=== PATIENT | female | born 1940 | race Caucasian/White ===

== ENCOUNTER 2020-12-15 07:10 | Inpatient (IN) ==
[2020-12-15] MEDS ORDERED: IOPAMIDOL 100 ML BOTTLE IV ONE (07:11)
[2020-12-15] MEDS ORDERED: IPRATROPIUM/ALBUTEROL 3 ML AMPUL.NEB NEB ONE (07:18)
[2020-12-15] MEDS ORDERED: methylPREDNISolone SOD SUCC 125 MG/2 ML VIAL IV ONE (07:18)
[2020-12-15] MEDS ORDERED: ONDANSETRON 4 MG/2 ML VIAL IV ONE (07:18)
--- NOTE | 2020-12-15 07:26 | Emergency Department Note ---
Lower Extremity Injury HPI General Chief Complaint: Extremity Injury, Lower Stated Complaint: Left Hip Pain Time Seen by Provider: 12/15/20 07:18 Source: patient Mode of arrival: ambulatory Limitations: no limitations History of Present Illness HPI Narrative: Narrative: Presents to room T5 in transfer from an outside facility for evaluation treatment of left hip fracture. The patient reports that she tripped over her dog causing pain to her left hip. She was seen at an outside facility where CT scan of the pelvis confirmed comminuted left lumbar neck fracture. The patient was transferred for higher level of care and accepted by Dr. Aleman. The patient was also reported to have hit their head. CT scan of the head was obtained and showed no evidence of intracranial injury. On arrival the patient is noted to have increased adventitial breath sounds and moderate increased work of breathing. The patient does not report a history of COPD but per her medical record has have a history of COPD. She also denies taking home oxygen. No reported fevers or chills. No cough. No chest pain. Related Data Home Medications Medication Instructions Recorded Confirmed hydrocodone-acetaminophen 1 tab PO Q4H 02/07/15 08/07/20 lorazepam 0.5 mg PO TID 02/07/15 08/07/20 ondansetron 8 mg PO Q6HP PRN 02/07/15 08/07/20 ranitidine HCl 150 mg PO BID 02/07/15 12/12/18 albuterol sulfate 1 puff INH Q4-6HP PRN 12/12/18 12/12/18 magnesium citrate 300 ml PO ONCE 12/12/18 12/12/18 metoprolol tartrate 25 mg PO BID 12/12/18 08/07/20 polyethylene glycol 3350 17 gm PO DAILY 12/12/18 12/12/18 prednisone 5 mg PO QAC 12/12/18 12/12/18 sucralfate 1 gm PO BID 12/12/18 12/12/18 albuterol sulfate 2.5 mg INHALATION Q6H PRN 08/07/20 08/07/20 albuterol sulfate [Ventolin HFA] 2 puff INHALATION Q6H PRN 08/07/20 08/07/20 aspirin 81 mg PO DAILY 08/07/20 08/07/20 cefuroxime axetil 250 mg PO BID 08/07/20 08/07/20 duloxetine [Cymbalta] 40 mg PO BID 08/07/20 08/07/20 lisinopril 20 mg PO QDAY 08/07/20 08/07/20 lorazepam 1 mg PO BID 08/07/20 08/07/20 meloxicam 15 mg PO QDAY 08/07/20 08/07/20 ondansetron HCl [Zofran] 8 mg PO PRN PRN 08/07/20 08/07/20 pantoprazole 20 mg PO BID 08/07/20 08/07/20 Previous Rx's Medication Instructions Recorded azithromycin See Rx Instructions .ROUTE 08/07/20 .COMPLEX #6 tab prednisone 30 mg PO QDAY #15 tab 08/07/20 Allergies Allergy/AdvReac Type Severity Reaction Status Date / Time Penicillins Allergy Mild Fainting Verified 12/12/18 07:35 Review of Systems ROS ROS Narrative: Narrative: All systems ED: reviewed and negative except as stated. PFSH Narrative Patient History Narrative: Narrative: Medical/Surgical/Family History All Active Problems (Updated 12/15/20 @ 09:33 by Rony Kemp MD) Hip fracture (Acute) Chronic constipation (Acute) Hypertension (Acute) COPD (chronic obstructive pulmonary disease) (Acute) Chronic back pain (Acute) Medical History Chronic back pain Social History Smoking Status: Current every day smoker Exam Narrative Narrative: Narrative: General Limitations: no limitations General appearance: Present alert and in no apparent distress Head Head: Present atraumatic, normocephalic and normal inspection Eye Eye: Present normal appearance and EOMI; Absent conjunctival injection ENT ENT: Present normal exam and mucous membranes moist Neck Neck: Present normal inspection and trachea midline Respiratory Respiratory: Present rales/crackles (Increased left greater than right), wheezes and prolonged expiratory phase; Absent respiratory distress Cardiovascular Cardiovascular: Present regular rate, normal rhythm and normal heart sounds Adbominal Abdominal: Present soft; Absent distention, tenderness, guarding and rebound Extremities Extremities: Present tenderness (Diffuse tenderness to palpation overlying the left hip.); Absent normal inspection (Left lower extremity is noted to be externally rotated and shortened.) and full ROM (There is decreased range of motion of the left hip secondary to pain.) Back Back: Present normal inspection; Absent tenderness Neurological Neurological: Present alert, oriented X3 and CN II-XII intact; Absent motor sensory deficit Psychiatric Psychiatric: Present normal affect and normal mood Skin Skin: Present warm (WNL) and dry; Absent rash Course Vital Signs Vital signs: Vital Signs Temperature 97.7 F 12/15/20 07:11 Pulse Rate 76 12/15/20 07:11 Respiratory Rate 20 12/15/20 07:11 Blood Pressure 192/96 12/15/20 07:11 Pulse Oximetry (%) 91 12/15/20 07:11 Temperature 97.7 F 12/15/20 07:11 Pulse Rate 76 12/15/20 07:11 Respiratory Rate 20 12/15/20 07:11 Blood Pressure 192/96 12/15/20 07:11 Pulse Oximetry (%) 91 12/15/20 07:11 MDM MDM Narrative Medical decision making narrative: Narrative: The patient presents in transfer for higher level of care of her hip fracture. The patient does have some wheezing and adventitial breath sounds on exam. I was concerned the patient may have an underlying pneumonia with chronic bronchitis. She was treated with a DuoNeb and Solu-Medrol with clinical improvement. I did obtain a CTA of the chest to exclude consolidation. There is no evidence of pneumonia. I did discuss the case with hospitalist, Dr. Gomez who will admit the patient. Discharge Plan Patient/Caregiver Discharge Instructions Pt seen by GRAPHIC COORDINATOR/PA only: No Clinical Impression: Hip fracture, COPD (chronic obstructive pulmonary disease) Patient Disposition: Xfer As Inpt ([facility]) Follow up with: Jan Ramirez MD [Primary Care Provider] - Prescriptions: No Action lorazepam 1 MG tablet 0.5 mg PO TID RF: 0 hydrocodone-acetaminophen 1 TAB tablet 1 tab PO Q4H RF: 0 ranitidine HCl 150 MG capsule 150 mg PO BID RF: 0 ondansetron 4 MG tablet,disintegrating 8 mg PO Q6HP PRN (Reason: NAUSEA/VOMITING) RF: 0 sucralfate 1 GM tablet 1 gm PO BID RF: 0 prednisone 5 MG tablet 5 mg PO QAMCC RF: 0 magnesium citrate 296 ML solution 300 ml PO ONCE RF: 0 metoprolol tartrate 25 MG tablet 25 mg PO BID RF: 0 polyethylene glycol 3350 17 GM packet 17 gm PO DAILY RF: 0 albuterol sulfate 1 PUFF inhaler 1 puff INH Q4-6HP PRN (Reason: Shortness Of Breath) RF: 0 cefuroxime axetil 250 mg Tablet 250 mg PO BID RF: 0 albuterol sulfate 2.5 mg /3 mL (0.083 %) Solution For Nebulization 2.5 mg INHALATION Q6H PRN (Reason: Bronchospasm) RF: 0 meloxicam 15 mg Tablet 15 mg PO QDAY RF: 0 lisinopril 20 mg Tablet 20 mg PO QDAY RF: 0 ondansetron HCl [Zofran] 4 mg Tablet 8 mg PO PRN PRN (Reason: Nausea) RF: 0 pantoprazole 20 mg Tablet,Delayed Release (Dr/Ec) 20 mg PO BID RF: 0 aspirin 81 mg Tablet,Chewable 81 mg PO DAILY RF: 0 lorazepam 1 mg Tablet 1 mg PO BID RF: 0 duloxetine [Cymbalta] 20 mg Capsule,Delayed Release(Dr/Ec) 40 mg PO BID RF: 0 albuterol sulfate [Ventolin HFA] 90 mcg/actuation Hfa Aerosol Inhaler 2 puff INHALATION Q6H PRN (Reason: Bronchospasm) RF: 0 azithromycin 250 mg tablet See Rx Instructions .ROUTE .COMPLEX Qty: 6 RF: 0 prednisone 10 mg tablet 30 mg PO QDAY Qty: 15 RF: 0
[2020-12-15 07:49] LABS: POC Creatinine 0.6 mg/dL (0.6-1.2)
[2020-12-15] MEDS: fentaNYL 100 MCG/2 ML VIAL IV PRN ×2 (07:52→10:51)
--- NOTE | 2020-12-15 09:24 | Internal Med History&Physical ---
HPI History of Present Illness Patient information: Note initiated : 12/15/20 at 9:24 am Service Date, if different from initiated Date: [] Patient: Basia Rosa a 80 y/o F admitted on for Left Hip Pain. Chief Complaint: [] History of present illness: Ms. Rosa is a 80 year old F with a history of HTN/COPD/anxiety/DJD who presents to the ER after sustaining a fall fracturing her left hip. Orthopedics recommended transfer patient from [facility] where she had initial blood work and imaging to [facility] for operative interventions. After brief evaluation at [facility] ER hospital service was consulted for admission Patient received analgesics and has been drowsy. Most of the history obtained from review of medical records and ER physician. Patient apparently while walking her dog ran into her son and fell sustaining injury to her left hip. Patient is scheduled for operative intervention around 4 PM, currently stable vitals/hemodynamics. She appears confused following administration of narcotics in the ER. She is currently on a watch bed. No fever, anxiety, diaphoresis, pain Review of systems 10 point review system was performed and is negative except for ones discussed above PFSH PFSH All Active Problems (Updated 12/15/20 @ 09:33 by Rony Kemp MD) Hip fracture (Acute) Chronic constipation (Acute) Hypertension (Acute) COPD (chronic obstructive pulmonary disease) (Acute) Chronic back pain (Acute) Medical History Chronic back pain MEDS/ALLERGIES Home Medications and Allergies Home Medications Medication Instructions Recorded Confirmed Type hydrocodone-acetaminophen 1 tab PO Q4H 02/07/15 12/15/20 History lorazepam 0.5 mg PO TID 02/07/15 12/15/20 History metoprolol tartrate 25 mg PO BID 12/12/18 12/15/20 History polyethylene glycol 3350 17 gm PO DAILY PRN 12/12/18 12/15/20 History albuterol sulfate 2.5 mg INHALATION Q4HP PRN 08/07/20 12/15/20 History albuterol sulfate [Ventolin HFA] 2 puff INHALATION Q4HP PRN 08/07/20 12/15/20 History aspirin 81 mg PO DAILY 08/07/20 12/15/20 History duloxetine [Cymbalta] 20 mg PO BID 08/07/20 12/15/20 History lisinopril 20 mg PO QDAY 08/07/20 12/15/20 History lorazepam 1 mg PO HS 08/07/20 12/15/20 History meloxicam 15 mg PO QDAY 08/07/20 12/15/20 History ondansetron HCl [Zofran] 8 mg PO Q8HP PRN 08/07/20 12/15/20 History pantoprazole 20 mg PO BID 08/07/20 12/15/20 History ascorbic acid (vitamin C) 500 mg PO QDAY 12/15/20 12/15/20 History calcitonin (salmon) 1 spray INTRANASAL (ALT) QDAY 12/15/20 12/15/20 History epinephrine 0.3 mg IM PRN PRN 12/15/20 12/15/20 History lidocaine 1 patch TOPICAL DAILYP PRN 12/15/20 12/15/20 History naloxone 4 mg INTRANASAL PRN PRN 12/15/20 12/15/20 History nitroglycerin 0.4 mg SUBLINGUAL Q5M PRN 12/15/20 12/15/20 History sennosides-docusate sodium 1 tab PO BID 12/15/20 12/15/20 History ubidecarenone-omega 3-vit E 1 cap PO DAILY 12/15/20 12/15/20 History Allergies Allergy/AdvReac Type Severity Reaction Status Date / Time bee venom protein (honey bee) Allergy Severe Swelling Verified 12/15/20 11:38 of Lip/Tongue/Throat cephalexin Allergy Mild Nausea Verified 12/15/20 11:27 codeine Allergy Mild Itching Verified 12/15/20 11:26 Penicillins Allergy Mild Fainting Verified 12/12/18 07:35 Imipramine Allergy Unknown Unknown Verified 12/15/20 11:27 EXAM Constitutional Vitals: Temp Pulse Resp BP Pulse Ox 97.7 F 74 10 L 208/77 90 12/15/20 07:11 12/15/20 08:54 12/15/20 08:54 12/15/20 08:54 12/15/20 08:54 Confused but opens eyes to verbal commands Head normocephalic Oral cavity moist No ear or nose discharge Eye no subconjunctival pallor, movement symmetrical S1-S2 occasionally irregular Nonlabored breathing Nondistended nontender abdomen Left lower extremity shortened and externally rotated, no cyanosis clubbing or swelling Skin no suspicious lesion Psych anxious and confused Neuro GCS 6 DATA Data Completed and Pending Labs: Labs from last 24 hours 12/15/20 07:38 POC Creatinine 0.6 A/P Narrative A/P Narrative: * Left hip fracture-orthopedic consulted. Will undergo operative intervention later today. * Preop risk evaluation-based on RCRI [place] [employer] risk verification patient is overall high risk category in the setting advanced age/underlying COPD however does not have history of insulin-dependent diabetes/CKD/previous CAD/CVA. Surgery and anesthesia specific risk will be discussed by individual care providers. No modifiable risk factors at this time. Recommend use of incentive spirometry/end-tidal CO2 monitoring for first 24 hours post surgery. * Pain management on as needed opioids/acetaminophen * History of COPD-continue bronchodilators * Hypertension-restart beta-gina/CHINA inhibitor post surgery with holding parameters * History of GERD continue sucralfate/PPI * Anxiety disorder continue Cymbalta * DVT prophylaxis as per orthopedics Plan * Inpatient admission * Surgery consult * Monitor for delirium * ET CO2/incentive spirometry use post surgery * Pre-existing medical condition management on medications as above with holding parameters * Discharge planning per case management * PT OT nutrition support Time Spent With Patient Time: Total time spent is greater than 50% in coordination of care (as documented) at patient's floor/unit and/or counseling patient:
--- NOTE | 2020-12-15 09:26 | Cat Scan Report ---
CLINICAL INFORMATION: Shortness of breath. COMPARISON: None. TECHNIQUE: 80ml of Isovue-370 were injected intravenously. Using SmartPrep to maximize pulmonary artery opacification, .625mm helical slices were obtained from the lung apices through the lung bases. Following reconstruction, 2.5 mm sagittal, coronal, and axial reformations were processed. The exam was reviewed at mediastinal, lung, and bone windows. The exam was performed using radiation dose optimization techniques including, but not limited to, automated exposure control, adjustment of the mA and/or kV according to patient size and use of iterative reconstruction technique. FINDINGS: Mediastinal windows show the pulmonary arteries are normal in caliber and well-opacified: no evidence of pulmonary embolus. Thoracic aorta is mildly ectatic with fibrofatty and calcific plaque in the aortic arch and descending thoracic aorta. The heart is mildly enlarged with only mild fibrofatty calcific plaque scattered throughout the coronary arteries. There is no adenopathy in the mediastinal hilar or axillary regions. Esophagus is grossly normal. Pulmonary parenchymal windows show moderate centrilobular emphysema featuring chronic bronchitis with elevated lung volumes and dilatation/wall thickening the bronchi. Multiple small bullae are predominantly in the lung apices and scattered scarring periphery of both lungs. No infiltrates. There is a 9 x 6 mm nodule with slightly irregular borders in the right lung apex on axial image 18. This is more likely focal scarring rather than a malignancy. Bone windows show minimal chronic wedging mid lower thoracic vertebral bodies compatible with mild osteoporosis. Severe degenerative disc disease at T9 noted noted. Images should the superior abdomen show no abnormality. IMPRESSION: 1. No evidence of pulmonary embolus or other acute cardiopulmonary process. 2. Mild centrilobular emphysema. 3. 9 x 6 mm nodule in the right lung apex. Suggest follow-up noncontrast chest CT in six months for reassessment. It is more likely benign fibrosis than malignancy. Interpreted and Authenticated by: Mina Omalley 12/15/20
[2020-12-15] MEDS ORDERED: BISACODYL 10 MG SUPP.RECT PR PRN (10:55)
[2020-12-15] MEDS ORDERED: ACETAMINOPHEN 325 MG TABLET PO PRN (10:55)
[2020-12-15] MEDS ORDERED: POLYETHYLENE GLYCOL 3350 17 GM PACKET PO PRN (10:55)
[2020-12-15] MEDS ORDERED: POTASSIUM CHLORIDE 40 MEQ in DEXTROSE 5% IN WATER 500 ML IV PRN (10:55)
[2020-12-15] MEDS ORDERED: ONDANSETRON 4 MG ODT TABLET SL PRN (10:55)
[2020-12-15] MEDS ORDERED: MAGNESIUM SULFATE 2 GM/50 ML BAG IV PRN (10:55)
[2020-12-15] MEDS ORDERED: ONDANSETRON 4 MG/2 ML VIAL IV PRN (10:55)
[2020-12-15] MEDS ORDERED: 0.9 % SODIUM CHLORIDE 1,000 ML IV SCH (10:55)
--- NOTE | 2020-12-15 10:55 | EKG ---
[facility] Test Date: 2020-12-15 Pat Name: Basia Rosa Department: ED Room: Gender: Female Can Handler: : 1940 Requested By: Rony Kemp Order Number: [id number] Reading MD: Michael Fischer M.D. Measurements Intervals [place] Rate: 74 P: 85 MT: 150 QRS: 4 QRSD: 72 T: -73 QT: 382 QTc: 424 Interpretive Statements Sinus rhythm Left atrial enlargement Left ventricular hypertrophy Poor R-wave progression Nonspecific T abnormalities, lateral leads Since previous ECG of 08-06-2020, no LAD; LVH, no criteria for old ASMI Electronically Signed On 12-15-2020 10:55:09 PDT by Michael Fischer M.D. /store/M0/[id number]/[id number]
[2020-12-15] MEDS ORDERED: 0.9 % SODIUM CHLORIDE 500 ML IV ONE (11:20)
[2020-12-15] MEDS: IPRATROPIUM/ALBUTEROL 3 ML AMPUL.NEB NEB SCH ×5 (11:27→22:37)
[2020-12-15 11:32] LABS: INR 0.9 (0.9-1.1); Prothrombin Time 12.9 sec (11.9-14.5)
--- NOTE | 2020-12-15 12:01 | XRay Report ---
CLINICAL INFORMATION: fall, hip fracture COMPARISON: None. FINDINGS: Subcapital fracture of the left hip appreciated. Femoral neck fragment displaced 1 cm superiorly. Moderate diffuse osteoporosis noted. Both SI and hip joints show mild degenerative change. IMPRESSION: Displaced subcapital fracture - left hip. Moderate osteoporosis Interpreted and Authenticated by: Mina Omalley 12/15/20
[2020-12-15] MEDS: ACETAMINOPHEN 650 MG/65 ML BAG IV PRN ×2 (12:15→21:45)
[2020-12-15] MEDS: 0.9 % SODIUM CHLORIDE 10 ML SYRINGE IV SCH ×2 (13:01→21:45)
[2020-12-15] MEDS ORDERED: ceFAZolin 2 GM in DEXTROSE 5% IN WATER 50 ML IV SCH ×3 (13:30→15:45)
[2020-12-15] MEDS ORDERED: 0.9 % SODIUM CHLORIDE 9 ML, KETOROLAC 30 MG, ROPIVACAINE HCL/PF 49.5 ML, EPINEPHrine 0.... IJ ONE (13:51)
[2020-12-15] MEDS ORDERED: ONDANSETRON 4 MG/2 ML VIAL ONE (13:56)
[2020-12-15] MEDS ORDERED: TRANEXAMIC ACID 1,000 MG/10 ML VIAL IV ONE (13:56)
[2020-12-15] MEDS ORDERED: PROPOFOL 200 MG/20 ML VIAL IV ONE (13:56)
[2020-12-15] MEDS ORDERED: fentaNYL 100 MCG/2 ML VIAL IV ONE (13:56)
[2020-12-15] MEDS ORDERED: DEXAMETHASONE 10 MG/ML VIAL ONE (13:56)
[2020-12-15] MEDS ORDERED: KETAMINE 50 MG/ML ML ONE (13:56)
[2020-12-15] MEDS ORDERED: GLYCOPYRROLATE 0.2 MG/ML VIAL IV ONE (13:56)
[2020-12-15] MEDS ORDERED: LIDOCAINE HCL/PF 100 MG/5 ML SYRINGE IV ONE (13:56)
[2020-12-15] MEDS ORDERED: PHENYLEPHRINE 10 MG/ML VIAL ONE (13:56)
[2020-12-15] MEDS ORDERED: MEPERIDINE 25 MG/ML VIAL IV PRN (14:37)
[2020-12-15] MEDS ORDERED: ePHEDrine 50 MG/ML AMPUL IV PRN (14:37)
[2020-12-15] MEDS ORDERED: METHOCARBAMOL 1,000 MG/10 ML VIAL IV PRN (14:37)
[2020-12-15] MEDS ORDERED: METOPROLOL TARTRATE 5 MG/5 ML VIAL IV PRN (14:37)
[2020-12-15] MEDS ORDERED: PROMETHAZINE 25 MG/ML VIAL IV PRN (14:37)
[2020-12-15] MEDS ORDERED: ACETAMINOPHEN 1,000 MG/100 ML BAG IV ONE (14:37)
[2020-12-15] MEDS ORDERED: diphenhydrAMINE 50 MG/ML VIAL IV PRN (14:37)
[2020-12-15] MEDS ORDERED: NALOXONE HCL 0.4 MG/ML VIAL IV PRN (14:37)
[2020-12-15] MEDS ORDERED: fentaNYL 100 MCG/2 ML VIAL IV PRN (14:37)
[2020-12-15] MEDS ORDERED: IPRATROPIUM/ALBUTEROL 3 ML AMPUL.NEB NEB PRN (14:37)
[2020-12-15] MEDS ORDERED: ATROPINE SULFATE 0.4 MG/ML VIAL IV PRN (14:37)
--- NOTE | 2020-12-15 14:39 | Consultation ---
DATE OF CONSULTATION: 12/15/2020 REASON FOR CONSULTATION: Left displaced femoral neck fracture. REQUESTING PHYSICIAN: Gage Robles M.D. HISTORY OF PRESENT ILLNESS: The patient is an 80-year-old female who today fell to the ground after an acquaintance bumped into when dodging from a dog. She had immediate pain about the hip and was unable to ambulate thereafter. She was transferred to outside facility and subsequently transferred here for further evaluation and treatment. Upon presentation, she was only complaining of left hip pain. She has obvious deformity and no other complaints on presentation. PAST MEDICAL HISTORY: Significant for COPD, chronic back pain, and hypertension. PAST SURGICAL HISTORY: None reported. ALLERGIES: 1. CEPHALEXIN. 2. CODEINE. 3. PENICILLINS. 4. IMIPRAMINE. MEDICATIONS: 1. Lorazepam. 2. Metoprolol. 3. Stool softeners. 4. Aspirin. 5. Cymbalta. 6. Anti-inflammatories. 7. Calcitonin. 8. Nitroglycerin patches. SOCIAL HISTORY: She resides outside the local community with family. She does use tobacco products on a daily basis. REVIEW OF SYSTEMS: Other than mentioned in HPI, she denies any acute changes. PHYSICAL EXAMINATION: GENERAL: The patient is alert, oriented, somewhat frail, in mild distress secondary to her hip pain. VITAL SIGNS: She is afebrile with a temperature of 99.1, heart rates in the 70s, blood pressure is 170s over 80s, satting variable but anywhere from 80s to upper 90s on 3 liters nasal cannula. EXTREMITIES: Examination reveals focal injury to her left lower extremity. Her skin is intact about her left hip. Her hip is shortened and slightly internally rotated. Her foot is slightly cold; however, is warm and well perfused with palpable pulses. Sensation to light touch is intact throughout. Obviously, no other deformities noted. IMAGING: She has plain radiographs demonstrating a displaced left femoral neck fracture. LABORATORY DATA: She has an INR of 0.9. ASSESSMENT AND PLAN: The patient is an 80-year-old, frail lady with a displaced left femoral neck fracture. I discussed this with her today at length as well as the options for treatment. I discussed treatment options, including operative and nonoperative. I did discuss that typically these are treated operatively to improve her pain as well as restore her function to somewhat a new baseline, but it will allow her to be weightbearing as tolerated thereafter. I discussed this with her at length. She understands. I discussed the risks of surgery including infection, bleeding, leg length discrepancy, dislocations, which she all understands. She also has a risk of blood clots, cardiac and pulmonary dysfunction given her underlying medical issues. Given that, she does want to proceed with surgery. Plan will be for left hip hemiarthroplasty later today. Otherwise, questions were answered. DLW:miki Job ID: [id number] Doc ID: [id number] [facility]
[2020-12-15] MEDS ORDERED: TRANEXAMIC ACID 1,000 MG/10 ML VIAL IV SCH (15:35)
[2020-12-15] MEDS ORDERED: METHOCARBAMOL 750 MG TABLET PO PRN (15:40)
--- NOTE | 2020-12-15 15:44 | Brief Operative Note ---
Brief Operative Note Date of procedure: 12/15/20 Pre-op diagnosis: left femoral neck fracture Post-op diagnosis: same Procedure: left hip thanh arthroplasty Grafts/Implants: Yes Anesthesia: GETA Findings: displaced, comminuted fracture Complications: none Surgeon: Wilver Aleman Legal Nurse Consultant: Deep Damon Estimated blood loss (cc): 50 Tourniquet Time (Minutes): 0 Specimens Removed/Pathology: none sent Condition: stable Disposition: PACU
--- NOTE | 2020-12-15 16:16 | Operative Note ---
DATE OF OPERATION: 12/15/2020 PREOPERATIVE DIAGNOSIS: Displaced left femoral neck fracture. POSTOPERATIVE DIAGNOSIS: Displaced left femoral neck fracture. PROCEDURE PERFORMED: Left hip hemiarthroplasty, cemented. SURGEON: Wilver Aleman M.D. GLUING MACHINE OPERATOR AUTOMATIC: Deep Damon PA-C. The PA's assistance was required for the safe and efficient completion of the entire case. This provider's expertise and technical skill were required throughout the case. The PA assisted with preoperative coordination, intraoperative retraction, wound closure, dressing and splint application, as well as postoperative documentation and care coordination. ANESTHESIA: General. INTRAVENOUS FLUIDS: 1200 mL of lactated Ringer's. ESTIMATED BLOOD LOSS: 50 mL. TOURNIQUET TIME: Not applicable. ANTIBIOTICS: 2 grams Ancef. IMPLANTS: Graves Basic stem, size 2 cemented with a size 44 head ball with a negative 3 insert. INTRAOPERATIVE COMPLICATIONS: None apparent. INDICATIONS FOR PROCEDURE: The patient is an 80-year-old female who has a displaced femoral neck fracture from a fall. I discussed treatment options with her, along with the risks, benefits, alternatives, postoperative expectations, and recovery process, and she wanted to proceed in this fashion to restore the function. She understands she has significant risks associated with surgery, but wished to proceed. DESCRIPTION OF PROCEDURE: Patient was met in the preoperative holding area where site was verified and marked with the patient's input. She was then taken back to the operating room where she underwent successful anesthesia. She was placed in lateral decubitus position with the left side up. The left lower extremity was prepped and draped in the usual sterile fashion with ChloraPrep. Surgical timeout was performed to verify patient's identity, correct procedure being performed, and correct extremity being operated on. Everybody was in agreement. I created approximately a 10 cm incision over the posterior aspect of the greater trochanter. Skin was incised sharply incised down to the tensor fascia muscle as well as the IT band more distally. Skin was sharply incised and the bursa was exposed and excised. A self-retaining retractor was placed, exposing the external rotators of the hip itself. These were elevated off sharply. The piriformis was released and tagged. This exposed the capsule. Capsule was incised longitudinally in line with the femoral neck. This exposed the fracture. The capsule was tagged. Femoral neck cut was made approximately a centimeter from the lesser trochanter. She had significant comminution of the fracture. In doing so, did have some comminution of the medial calcar upon making the femoral neck cut as well. The femoral head was removed and sized with a size 44. The wound was copiously irrigated with IrriSept and the femoral neck was exposed utilizing a box chipper, a canal finder, and broach. It was broached up to a size 2 with good interference fit and her bone was very osteoporotic. At this point, we placed a cable to prevent fracture. Once the cable was placed, we removed the broach. Elected to cemented in a size 2 Basic Graves stem prior to trialling given the osteoporotic nature of her bone and risk of fracture.. With placement of a cement restrictor, pulse lavaging the canal, brushing it, and suctioning it dry. Once the cement was hardened, trialed with a negative 3 insert with a 44 head ball and reduced the joint with jewish of her length and stability with internal rotation and hip flexion. The hip was then dislocated and the final implant was impacted onto the stem with a negative 3 insert and a 44 head ball. The joint was then reduced, taken through range of motion and was stable. The wound was copiously irrigated. We closed the posterior capsule with Ethibond sutures for a total of four. The IT band was then closed with Stratafix proximally with #1 Vicryl, subcutaneous tissue layered with 2-0 and 3-0 Vicryl, and skin was with jayjay. The hip was then cleaned and dried. We placed a silver dressing and a hip abduction pillow. The patient awoke from anesthesia and was transferred to PACU in stable condition. POSTOPERATIVE PLAN: The patient will be admitted back to the floor for postoperative recovery. PHAN:miki Job ID: [id number] Doc ID: [id number] MD ISABELLA Chung
--- NOTE | 2020-12-15 16:42 | XRay Report ---
CLINICAL INFORMATION: s/p hip thanh arthroplasty COMPARISON: Preoperative films 12/15/2020 FINDINGS: Left hemiarthroplasty is anatomically positioned. Mild diffuse osteoporosis noted. Minimally displaced transverse fracture through the left greater trochanter noted. Both SI and right hip joints are normal. Soft tissue swelling over the surgical site as expected. IMPRESSION: Left hemiarthroplasty anatomically aligned. Minimally displaced transverse fracture - left greater trochanter base Interpreted and Authenticated by: Mina Omalley 12/15/20
[2020-12-15] MEDS ORDERED: IOPAMIDOL 125 ML BOTTLE IV ONE (16:59)
[2020-12-15] MEDS: 0.9 % SODIUM CHLORIDE 1,000 ML IV SCH (17:36)
--- NOTE | 2020-12-15 17:40 | Cat Scan Report ---
CLINICAL INFORMATION: Decreased left lower extremity perfusion COMPARISON: None. TECHNIQUE: 120 cc of Isovue-370 were injected intravenously and, using SmartPrep to maximize arterial opacification, 0.625 mm helical slices were obtained from the diaphragm through the feet following reconstruction, 2.5 mm sagittal, coronal and axial reformatted images were processed and reviewed at bone and soft tissue windows. 3-D volume rendered and selective CPR images were constructed on an independent workstation.The exam was performed using radiation dose optimization techniques including, but not limited to, automated exposure control, adjustment of the mA and/or kV according to patient size and use of iterative reconstruction technique. FINDINGS: Fusiform infrarenal abdominal aortic aneurysm with a diameter 3 cm appreciated. There is also a 3.2 cm dissection within the left wall of aneurysm with opacification of both true and false lumen. Moderate fibrofatty calcific plaque seen throughout the abdominal aorta. Celiac, SMA, CLYDE renal arteries contain moderate atherosclerotic plaque, but no definite stenosis. There is moderate fibrofatty and calcific plaque within the common, external and internal iliac arteries. A long 50% stenosis seen throughout most of the left external iliac artery. There is a greater than 50% stenosis within the right external iliac artery. There are also 50% stenoses in both common femoral artery. Both superficial femoral, profunda femoral, popliteal and trifurcation arteries are patent to the level of the foot. Left hemiarthroplasty is anatomically aligned. There is a mildly displaced fracture of the left greater trochanteric base. Soft tissue swelling and gas seen in the surgical site that as expected. Abdominal images also show mild ileus. IMPRESSION: 1. Fusiform infrarenal abdominal aortic aneurysm 3 cm in diameter. 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 These are commonly seen and almost certainly long-standing. Suggest follow-up abdominal aortic ultrasound in one year 2. Right leg runoff: Common iliac artery widely patent. 50% stenoses in the right external iliac and common femoral arteries. The superficial femoral, profunda femoral, popliteal and trifurcation arteries are patent to the foot level. 3. Left leg runoff: 50% stenoses in the common external iliac and common femoral arteries. Superficial femoral, popliteal and trifurcation arteries are patent to the foot level. 4. Left hip hemiarthroplasty. Mildly displaced transverse fracture of the left greater trochanter base. 5. Mild ileus with moderate colonic stool. Interpreted and Authenticated by: Mina Omalley 12/15/20
[2020-12-15] MEDS: BUDESONIDE 0.5 MG/2 ML AMPUL.NEB NEB SCH ×2 (18:40→21:00)
[2020-12-15] MEDS: HYDROmorphone 0.5 MG/0.5 ML SYRINGE IV PRN (19:53)
[2020-12-15] MEDS: DOCUSATE SODIUM 100 MG CAPSULE PO SCH (20:40)
[2020-12-15] MEDS: LORazepam 2 MG/ML VIAL IV SCH (20:41)
[2020-12-15] MEDS: NICOTINE 21 MG PATCH TOPICAL SCH (20:41)
[2020-12-15] MEDS ORDERED: SENNOSIDES/DOCUSATE SODIUM 1 TAB TABLET PO SCH (21:00)
[2020-12-15] MEDS: ceFAZolin 1 GM VIAL IV SCH (21:45)
[2020-12-15] MEDS ORDERED: hydrALAZINE 20 MG/ML VIAL IV PRN (23:43)
[2020-12-15] MEDS: METOPROLOL TARTRATE 25 MG TABLET PO SCH (23:48)
[2020-12-15] MEDS ORDERED: METOPROLOL TARTRATE 25 MG TABLET ONE (23:48)
[2020-12-16] MEDS: HYDROmorphone 0.5 MG/0.5 ML SYRINGE IV PRN (03:05)
[2020-12-16] MEDS: IPRATROPIUM/ALBUTEROL 3 ML AMPUL.NEB NEB SCH ×2 (03:05→07:40)
[2020-12-16] MEDS: ACETAMINOPHEN 650 MG/65 ML BAG IV PRN (04:00)
[2020-12-16] MEDS: ceFAZolin 1 GM VIAL IV SCH (05:22)
[2020-12-16] MEDS: 0.9 % SODIUM CHLORIDE 10 ML SYRINGE IV SCH ×3 (05:24→21:27)
--- NOTE | 2020-12-16 06:15 | Orthopedic Progress Note ---
SUBJECTIVE Subjective Patient information: Note initiated : 12/16/20 at 6:10 am Service Date, if different from initiated Date: [] Patient: Basia Rosa 80 y/o F admitted on 12/15/20 for Left Hip Pain. Chief Complaint: [POD 1 s/p right hip thanh arthroplasty for displaced femoral neck fracture. No acute events overnight. Pain controlled. ] Constitutional Vitals: Vital Signs Temp Pulse Resp BP Pulse Ox 98.4 F 74 16 152/80 95 12/16/20 03:10 12/16/20 03:10 12/16/20 03:10 12/16/20 03:10 12/16/20 03:10 Period Temp Pulse Resp BP Sys/[place] Pulse Ox Last 24 Hr 97.7 F-99.1 F 68-100 7-22 145-208/77-107 83-100 Intake and Output 12/15/20 12/16/20 12/16/20 21:59 05:59 13:59 Intake Total 1575 525 Output Total 100 1050 Balance 1475 -525 Weight 82 lb 14.4 oz Intake & Output: Intake & Output 12/15/20 12/16/20 12/16/20 21:59 05:59 13:59 Intake Total 1575 525 Output Total 100 1050 Balance 1475 -525 Weight 82 lb 14.4 oz Intake: IV 100 425 Sodium Chloride 0.9% 1,000 ml @ 0 295 50 mls/hr IV .Q20H [facility] Rx#: [id number] Ancef 2 gm In Dextrose 5% in 100 Water 50 ml @ 100 mls/hr IV PREOP [facility] Rx#:[id number] Oral 75 100 IV - Manual Only 1400 Output: Urine Catheter Amount 1050 Estimated Blood Loss 100 Other: Meal Lunch egg salad sandwich Percent of Meal Consumed 0% 50% Feeding Ability Assist with Tray Set Up Assist with Tray Set Up Urine Appearance Clear Clear Uretheral (Flores) Clear Urine Color Pale Pale Uretheral (Flores) Pale Urine Odor Normal Additional findings Additional findings: Alert and appropriate, mostly oriented- somewhat confused- finding words Left hip: clean dry and intact silver dressing. Foot is warm well perfused. sensation intact throughout. OBJ DATA Labs CBC & Chem 7: 12/16/20 05:27 12/16/20 05:27 Meds: Medications Acetaminophen (Acetaminophen 500 Mg Tablet) 1,000 mg PO Q8 [facility]; Protocol Albuterol/Ipratropium (Ipratropium/Albuterol 3 Ml Ampul.Neb) 3 ml NEB Q4HRT [facility] Last Admin: 12/16/20 03:05 Dose: Not Given Documented by: Apixaban (Apixaban 5 Mg Tablet) 2.5 mg PO BID [facility] Bisacodyl (Bisacodyl 10 Mg Supp.Rect) 10 mg [place] Q2-3DAYS PRN PRN Reason: Constipation Budesonide (Budesonide 0.5 Mg/2 Ml Ampul.Neb) 0.5 mg NEB Q12 [facility] Last Admin: 12/15/20 21:00 Dose: Not Given Documented by: Docusate Sodium (Docusate Sodium 100 Mg Capsule) 100 mg PO BID [facility] Last Admin: 12/15/20 20:40 Dose: 100 mg Documented by: Hydralazine HCl (Hydralazine 20 Mg/Ml Vial) 10 mg IV Q6HP PRN PRN Reason: Hypertension Potassium Chloride 40 meq/ (Dextrose) 520 mls @ 130 mls/hr IV UD PRN PRN Reason: K+ = or < 3.5 Magnesium Sulfate (Magnesium Sulfate) 2 gm in 50 mls @ 50 mls/hr IV UD PRN PRN Reason: MG = or < 1.7 Sodium Chloride (Sodium Chloride 0.9%) 1,000 mls @ 50 mls/hr IV .Q20H [facility] Stop: 12/17/20 22:54 Last Infusion: 12/15/20 18:00 Dose: Infused Documented by: Sodium Chloride (Sodium Chloride 0.9%) 1,000 mls @ 50 mls/hr IV .Q20H [facility] Last Infusion: 12/15/20 23:30 Dose: Infused Documented by: Iron Carb/Multivit/[place]/Folic Acid (Multivit,Ther Iron,Ca,Fa & Min 1 Tablet) 1 tab PO DAILY [facility] Lisinopril (Lisinopril 20 Mg Tablet) 20 mg PO DAILY [facility] Lorazepam (Lorazepam 2 Mg/Ml Vial) 1 mg IV HS [facility] Last Admin: 12/15/20 20:41 Dose: 1 mg Documented by: Melatonin (Melatonin 3 Mg Tablet) 3 mg PO HSP PRN PRN Reason: Insomnia Methocarbamol (Methocarbamol 750 Mg Tablet) 500 mg PO Q6HP PRN PRN Reason: Muscle Spasm Metoprolol Tartrate (Metoprolol Tartrate 25 Mg Tablet) 25 mg PO BID [facility] Last Admin: 12/15/20 23:48 Dose: 25 mg Documented by: Nicotine (Nicotine 21 Mg Patch) 21 mg TOPICAL DAILY [facility] Last Admin: 12/15/20 20:41 Dose: 21 mg Documented by: Ondansetron HCl (Ondansetron 4 Mg Odt Tablet) 4 mg SL Q4-6HP PRN; Protocol PRN Reason: Nausea And Vomiting Ondansetron HCl (Ondansetron 4 Mg/2 Ml Vial) 4 mg IV Q4-6HP PRN; Protocol PRN Reason: Nausea And Vomiting Oxycodone HCl (Oxycodone Hcl 5 Mg Tablet) 0 mg PO Q4HP PRN; Protocol PRN Reason: Per Pain Protocol Polyethylene Glycol (Polyethylene Glycol 3350 17 Gm Packet) 17 gm PO DAILYP PRN PRN Reason: Constipation Senna/Docusate Sodium (Sennosides/Docusate Sodium 1 Tab Tablet) 1 tab PO HS [facility] Last Admin: 12/15/20 20:41 Dose: 1 tab Documented by: Sodium Chloride (0.9 % Sodium Chloride 10 Ml Syringe) 10 ml IV Q8 [facility] Last Admin: 12/16/20 05:24 Dose: 10 ml Documented by: Thiamine HCl (Thiamine 100 Mg Tablet) 100 mg PO DAILY [facility] A/P Assessment and plan (1) Hip fracture: Status: Acute Comment: POD 1 s/p left cemented thanh hip arthroplasty -- wbat as tolerated with posterior hip precautions x6 weeks -------ok to use pillow between knees rather than abduction pillow while in bed. -- PT/OT today -- oral diet -- oral pain medications -- Prophy: IS, foot pumps, eliquis, ambulation -- Dispo: pending, patient from [facility] and wants to go home. pretty frail lady and may benefit from rehab. See how she does with therapy today. Time Spent With Patient Time: Total time spent is greater than 50% in coordination of care (as documented) at patient's floor/unit and/or counseling patient:
[2020-12-16 06:39] LABS: Basophils # (Auto) 0.02 K/mcL (0.00-0.20); Basophils % (Auto) 0.1 % (0.0-2.0); Eosinophils # (Auto) 0 K/mcL (0.00-0.70); Eosinophils % (Auto) 0 % (0.0-7.0); Hematocrit 31.5 % (36.0-48.0); Hemoglobin 10.1 g/dL (12.0-15.0); Lymphocytes # (Auto) 1.04 K/mcL (1.50-4.80); Lymphocytes % (Auto) 6.5 % (15.0-49.0); Mean Cell Volume 86.5 fL (80.0-100.0); Mean Corpuscular HGB Conc 32.1 g/dL (31.0-36.0); Mean Platelet Volume 9.2 fL (7.4-10.4); Monocytes # (Auto) 1.89 K/mcL (0.10-0.90); Monocytes % (Auto) 11.8 % (1.0-12.0); Neutrophils % (Auto) 81.6 % (38.0-78.0); Platelet Count 319 K/mcL (140-440); RBC 3.64 M/mcL (4.00-5.20); Red Cell Distribution Width 17.9 % (11.5-14.5)
[2020-12-16 06:59] LABS: ALT/SGPT 13 U/L (<40); AST/SGOT 21 U/L (<32); Albumin 3.4 gm/dL (3.2-5.2); Albumin/Globulin Ratio 1.4 (1.0-2.3); Alkaline Phosphatase 59 U/L (39-117); Bilirubin,Direct < 0.2 mg/dL (0-0.3); Bilirubin,Total 0.2 mg/dL (0.1-1.0); Blood Urea Nitrogen 17 mg/dL (8-23); Calcium 8.3 mg/dL (8.6-10.4); Carbon Dioxide 25 mmol/L (22-30); Chloride 100 mmol/L (96-108); Globulin 2.4 gm/dL (2.2-3.7); Glomerular Filtration Rate 86; Glucose 96 mg/dL (70-105); Lactate Dehydrogenase 293 U/L (135-225); Triglycerides 79 mg/dL (<150); Uric Acid 2.6 mg/dL (2.5-8.0)
[2020-12-16] MEDS: BUDESONIDE 0.5 MG/2 ML AMPUL.NEB NEB SCH ×2 (07:40→20:06)
[2020-12-16] MEDS: THIAMINE 100 MG TABLET PO SCH (08:34)
[2020-12-16] MEDS: LISINOPRIL 20 MG TABLET PO SCH (08:34)
[2020-12-16] MEDS: DOCUSATE SODIUM 100 MG CAPSULE PO SCH (08:34)
[2020-12-16] MEDS: MULTIVIT,THER IRON,CA,FA & MIN 1 TABLET PO SCH (08:34)
[2020-12-16] MEDS: NICOTINE 21 MG PATCH TOPICAL SCH (08:35)
[2020-12-16] MEDS: APIXABAN 5 MG TABLET PO SCH ×2 (08:35→21:27)
[2020-12-16] MEDS ORDERED: ALBUTEROL SULFATE 200 PUFF INHALER INH PRN (08:47)
--- NOTE | 2020-12-16 08:47 | Internal Med Progress Note ---
SUBJECTIVE Subjective Patient information: Note initiated : 12/16/20 at 8:44 am Service Date, if different from initiated Date: [] Patient: Basia Rosa a 80 y/o F admitted on 12/15/20 for Left Hip Pain. Chief Complaint: [] Interval history: Ms. Rosa is a 80 year old F with a history of HTN/COPD/anxiety/DJD who presents to the ER after sustaining a fall fracturing her left hip. Orthopedics recommended transfer patient from [facility] where she had initial blood work and imaging to [facility] for operative interventions. After brief evaluation at [facility] ER hospital service was consulted for admission Patient received analgesics and has been drowsy. Most of the history obtained from review of medical records and ER physician. Patient apparently while walking her dog ran into her son and fell sustaining injury to her left hip. Patient is scheduled for operative intervention around 4 PM, currently stable vitals/hemodynamics. She appears confused following administration of narcotics in the ER. She is currently on a watch bed. No fever, anxiety, diaphoresis, pain 12/16-patient doing well. No overnight events. No concerns per staff. Much more lucid alert. Off opioids. Postop day 1. Ongoing physical therapy. DC Flores's catheter if able to ambulate or bear weight. No additional concerns expressed by nursing staff. On Eliquis twice daily per orthopedics for DVT prophylaxis. Constitutional Vitals: Vital Signs Temp Pulse Resp BP Pulse Ox 98.3 F 71 16 181/85 98 12/16/20 07:40 12/16/20 07:40 12/16/20 07:40 12/16/20 07:40 12/16/20 07:41 Period Temp Pulse Resp BP Sys/[place] Pulse Ox Last 24 Hr 97.7 F-99.1 F 68-100 7-22 145-208/77-107 83-100 Intake and Output 12/15/20 12/16/20 12/16/20 21:59 05:59 13:59 Intake Total 1575 525 0 Output Total 100 1050 Balance 1475 -525 0 Weight 37.603 kg Alert oriented Nonlabored breathing No surgical site swelling or bleeding No anxiety Intake & Output: Intake & Output 12/15/20 12/16/20 12/16/20 21:59 05:59 13:59 Intake Total 1575 525 0 Output Total 100 1050 Balance 1475 -525 0 Weight 37.603 kg Intake: IV 100 425 Sodium Chloride 0.9% 1,000 ml @ 0 295 50 mls/hr IV .Q20H [facility] Rx#: [id number] Ancef 2 gm In Dextrose 5% in 100 Water 50 ml @ 100 mls/hr IV PREOP [facility] Rx#:[id number] Oral 75 100 0 IV - Manual Only 1400 Output: Urine Catheter Amount 1050 Estimated Blood Loss 100 Other: Meal Lunch egg salad sandwich Percent of Meal Consumed 0% 50% Feeding Ability Assist with Tray Set Up Assist with Tray Set Up Urine Appearance Clear Clear Uretheral (Flores) Clear Urine Color Pale Pale Uretheral (Flores) Pale Urine Odor Normal OBJ DATA Labs CBC & Chem 7: 12/16/20 05:27 12/16/20 05:27 Labs: Abnormal Lab Results 12/16/20 12/16/20 05:27 05:27 WBC 16.0 H RBC 3.64 L Hgb 10.1 L Hct 31.5 L RDW 17.9 H Neut % (Auto) 81.6 H Lymph % (Auto) 6.5 L Lymph # (Auto) 1.04 L [place] # (Auto) 1.89 H Absolute Neutrophils 13.07 H Calcium 8.3 L Lactate Dehydrogenase 293 H Total Protein 5.8 L Meds: Medications Acetaminophen (Acetaminophen 500 Mg Tablet) 1,000 mg PO Q8H [facility]; Protocol Apixaban (Apixaban 5 Mg Tablet) 2.5 mg PO BID [facility] Last Admin: 12/16/20 08:35 Dose: 2.5 mg Documented by: Bisacodyl (Bisacodyl 10 Mg Supp.Rect) 10 mg [place] Q2-3DAYS PRN PRN Reason: Constipation Budesonide (Budesonide 0.5 Mg/2 Ml Ampul.Neb) 0.5 mg NEB Q12 [facility] Last Admin: 12/16/20 07:40 Dose: 0.5 mg Documented by: Docusate Sodium (Docusate Sodium 100 Mg Capsule) 100 mg PO BID [facility] Last Admin: 12/16/20 08:34 Dose: 100 mg Documented by: Hydralazine HCl (Hydralazine 20 Mg/Ml Vial) 10 mg IV Q6HP PRN PRN Reason: Hypertension Potassium Chloride 40 meq/ (Dextrose) 520 mls @ 130 mls/hr IV UD PRN PRN Reason: K+ = or < 3.5 Magnesium Sulfate (Magnesium Sulfate) 2 gm in 50 mls @ 50 mls/hr IV UD PRN PRN Reason: MG = or < 1.7 Sodium Chloride (Sodium Chloride 0.9%) 1,000 mls @ 50 mls/hr IV .Q20H [facility] Last Infusion: 12/15/20 23:30 Dose: Infused Documented by: Iron Carb/Multivit/[place]/Folic Acid (Multivit,Ther Iron,Ca,Fa & Min 1 Tablet) 1 tab PO DAILY [facility] Last Admin: 12/16/20 08:34 Dose: 1 tab Documented by: Lisinopril (Lisinopril 20 Mg Tablet) 20 mg PO DAILY [facility] Last Admin: 12/16/20 08:34 Dose: 20 mg Documented by: Lorazepam (Lorazepam 2 Mg/Ml Vial) 1 mg IV HS [facility] Last Admin: 12/15/20 20:41 Dose: 1 mg Documented by: Melatonin (Melatonin 3 Mg Tablet) 3 mg PO HSP PRN PRN Reason: Insomnia Methocarbamol (Methocarbamol 750 Mg Tablet) 500 mg PO Q6HP PRN PRN Reason: Muscle Spasm Metoprolol Tartrate (Metoprolol Tartrate 25 Mg Tablet) 25 mg PO BID [facility] Last Admin: 12/15/20 23:48 Dose: 25 mg Documented by: Nicotine (Nicotine 21 Mg Patch) 21 mg TOPICAL DAILY [facility] Last Admin: 12/16/20 08:35 Dose: 21 mg Documented by: Ondansetron HCl (Ondansetron 4 Mg Odt Tablet) 4 mg SL Q4-6HP PRN; Protocol PRN Reason: Nausea And Vomiting Ondansetron HCl (Ondansetron 4 Mg/2 Ml Vial) 4 mg IV Q4-6HP PRN; Protocol PRN Reason: Nausea And Vomiting Oxycodone HCl (Oxycodone Hcl 5 Mg Tablet) 0 mg PO Q4HP PRN; Protocol PRN Reason: Per Pain Protocol Polyethylene Glycol (Polyethylene Glycol 3350 17 Gm Packet) 17 gm PO DAILYP PRN PRN Reason: Constipation Senna/Docusate Sodium (Sennosides/Docusate Sodium 1 Tab Tablet) 1 tab PO HS [facility] Last Admin: 12/15/20 20:41 Dose: 1 tab Documented by: Sodium Chloride (0.9 % Sodium Chloride 10 Ml Syringe) 10 ml IV Q8 [facility] Last Admin: 12/16/20 05:24 Dose: 10 ml Documented by: Thiamine HCl (Thiamine 100 Mg Tablet) 100 mg PO DAILY [facility] Last Admin: 12/16/20 08:34 Dose: 100 mg Documented by: A/P Narrative A/P Narrative: * Left hip fracture-postop day 1. Doing well. No overnight events. No concerns per staff. Continue management per orthopedics * Pain management on as needed opioids/acetaminophen * History of COPD-continue bronchodilators * Hypertension-continue beta-gina/CHINA inhibitor post surgery with holding parameters * History of GERD continue sucralfate/PPI * Anxiety disorder continue Cymbalta * DVT prophylaxis as per orthopedics Plan * Aggressive postop therapies * Continue pre-existing medical condition management on medications as above with holding parameters * Discharge planning per case management * Nutrition support Time Spent With Patient Time: Total time spent is greater than 50% in coordination of care (as documented) at patient's floor/unit and/or counseling patient: QUALITY VTE Deep Vein Thrombosis/Pulmonary Embolism Present on Admission: No
[2020-12-16] MEDS: oxyCODONE HCL 5 MG TABLET PO PRN ×3 (09:57→18:59)
[2020-12-16] MEDS: ASCORBIC ACID 500 MG TABLET PO SCH (09:57)
[2020-12-16] MEDS: SENNOSIDES/DOCUSATE SODIUM 1 TAB TABLET PO SCH ×2 (09:58→21:38)
[2020-12-16] MEDS: DULoxetine 20 MG CAPSULE PO SCH ×2 (09:58→21:42)
[2020-12-16] MEDS: 0.9 % SODIUM CHLORIDE 1,000 ML IV SCH (11:17)
--- NOTE | 2020-12-16 12:50 | Internal Med Progress Note ---
SUBJECTIVE Subjective Patient information: Note initiated : 12/16/20 at 12:48 pm Service Date, if different from initiated Date: [] Patient: Basia Rosa a 80 y/o F admitted on 12/15/20 for Left Hip Pain. Chief Complaint: [] Interval history: Interval history: Ms. Rosa is a 80 year old F with a history of HTN/COPD/anxiety/DJD who presents to the ER after sustaining a fall fracturing her left hip. Orthopedics recommended transfer patient from where she had initial blood work and imaging to [facility] for operative interventions. After brief evaluation at [facility] ER hospital service was consulted for admission Patient received analgesics and has been drowsy. Most of the history obtained from review of medical records and ER physician. Patient apparently while walking her dog ran into her son and fell sustaining injury to her left hip. Patient is scheduled for operative intervention around 4 PM, currently stable vitals/hemodynamics. She appears confused following administration of narcotics in the ER. She is currently on a watch bed. No fever, anxiety, diaphoresis, pain 12/16-patient doing well. No overnight events. No concerns per staff. Much more lucid alert. Off opioids. Postop day 1. Ongoing physical therapy. DC Flores's catheter if able to ambulate or bear weight. No additional concerns expressed by nursing staff. On Eliquis twice daily per orthopedics for DVT prophylaxis. 12/17 Constitutional Vitals: Vital Signs Temp Pulse Resp BP Pulse Ox 98.2 F 75 18 163/79 96 12/16/20 11:50 12/16/20 11:50 12/16/20 11:50 12/16/20 11:50 12/16/20 11:50 Period Temp Pulse Resp BP Sys/[place] Pulse Ox Last 24 Hr 98.2 F-98.6 F 68-100 7-18 145-196/79-107 83-100 Intake and Output 12/15/20 12/16/20 12/16/20 21:59 05:59 13:59 Intake Total 1575 525 0 Output Total 100 1050 250 Balance 1475 -525 -250 Weight 37.603 kg Intake & Output: Intake & Output 12/15/20 12/16/20 12/16/20 21:59 05:59 13:59 Intake Total 1575 525 0 Output Total 100 1050 250 Balance 1475 -525 -250 Weight 37.603 kg Intake: IV 100 425 Sodium Chloride 0.9% 1,000 ml @ 0 295 50 mls/hr IV .Q20H [facility] Rx#: [id number] Ancef 2 gm In Dextrose 5% in 100 Water 50 ml @ 100 mls/hr IV PREOP [facility] Rx#:[id number] Oral 75 100 0 IV - Manual Only 1400 Output: Urine Catheter Amount 1050 250 Uretheral (Flores) 250 Estimated Blood Loss 100 Other: Meal Lunch egg salad sandwich Lunch Percent of Meal Consumed 0% 50% 50% Feeding Ability Assist with Tray Set Up Assist with Tray Set Up Independent Urine Appearance Clear Clear Uretheral (Flores) Clear Urine Color Pale Pale Uretheral (Flores) Pale Urine Odor Normal Uretheral (Flores) Normal Exam: General: Alert, Awake, No acute Distress Eyes/N/T: EOMI, Head/Neck: neck supple, CV: RRR, No murmurs, Pulm: Clear b/l, no wheezing/rhonchi/rales Abd: soft, nontender, +BS x4 Ext: no clubbing/cyanosis/edema Neuro: Alert, no focal deficits, moves all extremities, Skin: warm/dry OBJ DATA Labs CBC & Chem 7: 12/16/20 05:27 12/16/20 05:27 Labs: Abnormal Lab Results 12/16/20 12/16/20 05:27 05:27 WBC 16.0 H RBC 3.64 L Hgb 10.1 L Hct 31.5 L RDW 17.9 H Neut % (Auto) 81.6 H Lymph % (Auto) 6.5 L Lymph # (Auto) 1.04 L [place] # (Auto) 1.89 H Absolute Neutrophils 13.07 H Calcium 8.3 L Lactate Dehydrogenase 293 H Total Protein 5.8 L Meds: Medications Acetaminophen (Acetaminophen 500 Mg Tablet) 1,000 mg PO Q8H [facility]; Protocol Albuterol Sulfate (Albuterol Sulfate 2.5 Mg/3 Ml Nebulizer) 2.5 mg INH Q4HP PRN PRN Reason: Shortness Of Breath Albuterol Sulfate (Albuterol Sulfate 200 Puff Inhaler) 2 puff INH Q4HP PRN PRN Reason: Shortness Of Breath Apixaban (Apixaban 5 Mg Tablet) 2.5 mg PO BID [facility] Last Admin: 12/16/20 08:35 Dose: 2.5 mg Documented by: Ascorbic Acid (Ascorbic Acid 500 Mg Tablet) 500 mg PO QDAY [facility] Last Admin: 12/16/20 09:57 Dose: 500 mg Documented by: Bisacodyl (Bisacodyl 10 Mg Supp.Rect) 10 mg [place] Q2-3DAYS PRN PRN Reason: Constipation Budesonide (Budesonide 0.5 Mg/2 Ml Ampul.Neb) 0.5 mg NEB Q12 [facility] Last Admin: 12/16/20 07:40 Dose: 0.5 mg Documented by: Duloxetine HCl (Duloxetine 20 Mg Capsule) 20 mg PO BID [facility] Last Admin: 12/16/20 09:58 Dose: 20 mg Documented by: Hydralazine HCl (Hydralazine 20 Mg/Ml Vial) 10 mg IV Q6HP PRN PRN Reason: Hypertension Last Admin: 12/16/20 11:56 Dose: 10 mg Documented by: Potassium Chloride 40 meq/ (Dextrose) 520 mls @ 130 mls/hr IV UD PRN PRN Reason: K+ = or < 3.5 Magnesium Sulfate (Magnesium Sulfate) 2 gm in 50 mls @ 50 mls/hr IV UD PRN PRN Reason: MG = or < 1.7 Sodium Chloride (Sodium Chloride 0.9%) 1,000 mls @ 50 mls/hr IV .Q20H [facility] Last Admin: 12/16/20 11:17 Dose: Not Given Documented by: Iron Carb/Multivit/Armoring Machine [employer]/Folic Acid (Multivit,Ther Iron,Ca,Fa & Min 1 Tablet) 1 tab PO DAILY [facility] Last Admin: 12/16/20 08:34 Dose: 1 tab Documented by: Lisinopril (Lisinopril 20 Mg Tablet) 20 mg PO DAILY [facility] Last Admin: 12/16/20 08:34 Dose: 20 mg Documented by: Lorazepam (Lorazepam 2 Mg/Ml Vial) 1 mg IV HS [facility] Last Admin: 12/15/20 20:41 Dose: 1 mg Documented by: Melatonin (Melatonin 3 Mg Tablet) 3 mg PO HSP PRN PRN Reason: Insomnia Methocarbamol (Methocarbamol 750 Mg Tablet) 500 mg PO Q6HP PRN PRN Reason: Muscle Spasm Metoprolol Tartrate (Metoprolol Tartrate 25 Mg Tablet) 25 mg PO BID [facility] Last Admin: 12/15/20 23:48 Dose: 25 mg Documented by: Nicotine (Nicotine 21 Mg Patch) 21 mg TOPICAL DAILY [facility] Last Admin: 12/16/20 08:35 Dose: 21 mg Documented by: Ondansetron HCl (Ondansetron 4 Mg Odt Tablet) 4 mg SL Q4-6HP PRN; Protocol PRN Reason: Nausea And Vomiting Ondansetron HCl (Ondansetron 4 Mg/2 Ml Vial) 4 mg IV Q4-6HP PRN; Protocol PRN Reason: Nausea And Vomiting Oxycodone HCl (Oxycodone Hcl 5 Mg Tablet) 0 mg PO Q4HP PRN; Protocol PRN Reason: Per Pain Protocol Last Admin: 12/16/20 09:57 Dose: 5 mg Documented by: Pantoprazole Sodium (Pantoprazole 40 Mg Tablet) 40 mg PO BIDAC [facility] Polyethylene Glycol (Polyethylene Glycol 3350 17 Gm Packet) 17 gm PO DAILYP PRN PRN Reason: Constipation Last Admin: 12/16/20 09:02 Dose: 17 gm Documented by: Senna/Docusate Sodium (Sennosides/Docusate Sodium 1 Tab Tablet) 1 tab PO BID [facility] Last Admin: 12/16/20 09:58 Dose: 1 tab Documented by: Sodium Chloride (0.9 % Sodium Chloride 10 Ml Syringe) 10 ml IV Q8 [facility] Last Admin: 12/16/20 05:24 Dose: 10 ml Documented by: Thiamine HCl (Thiamine 100 Mg Tablet) 100 mg PO DAILY [facility] Last Admin: 12/16/20 08:34 Dose: 100 mg Documented by: A/P Narrative A/P Narrative: A: *Left hip fracture: s/p ORIF (12/15) *h/o COPD: continue bronchodilators *HTN: continue beta-gina/[place] inhibitor post surgery with holding parameters *h/o GERD: continue sucralfate/PPI *Anxiety disorder: continue Cymbalta Plan -Pain management on as needed opioids/acetaminophen -Aggressive postop therapies -Discharge planning per case management -Nutrition support -DVT prophylaxis as per rashid vieyra Time Spent With Patient Time: Total time spent is greater than 50% in coordination of care (as documented) at patient's floor/unit and/or counseling patient: QUALITY VTE Deep Vein Thrombosis/Pulmonary Embolism Present on Admission: No
[2020-12-16] MEDS: ACETAMINOPHEN 500 MG TABLET PO SCH ×2 (14:11→21:26)
[2020-12-16] MEDS: PANTOPRAZOLE 40 MG TABLET PO SCH (16:33)
[2020-12-16] MEDS: LORazepam 2 MG/ML VIAL IV SCH (21:27)
[2020-12-16] MEDS: METOPROLOL TARTRATE 25 MG TABLET PO SCH (21:27)
[2020-12-17] MEDS: METOPROLOL TARTRATE 25 MG TABLET PO SCH ×3 (00:41→20:54)
[2020-12-17] MEDS: oxyCODONE HCL 5 MG TABLET PO PRN ×4 (02:17→20:55)
[2020-12-17] MEDS: 0.9 % SODIUM CHLORIDE 10 ML SYRINGE IV SCH ×3 (05:57→20:56)
[2020-12-17] MEDS: ACETAMINOPHEN 500 MG TABLET PO SCH ×3 (05:57→22:06)
[2020-12-17] MEDS: 0.9 % SODIUM CHLORIDE 1,000 ML IV SCH (06:46)
[2020-12-17] MEDS: APIXABAN 5 MG TABLET PO SCH ×2 (07:52→20:55)
[2020-12-17] MEDS: PANTOPRAZOLE 40 MG TABLET PO SCH ×2 (07:52→16:50)
[2020-12-17] MEDS: DULoxetine 20 MG CAPSULE PO SCH ×2 (07:52→20:54)
--- NOTE | 2020-12-17 07:52 | Internal Med Progress Note ---
SUBJECTIVE Subjective Patient information: Note initiated : 12/17/20 at 7:50 am Service Date, if different from initiated Date: [] Patient: Basia Rosa a 80 y/o F admitted on 12/15/20 for Left Hip Pain. Chief Complaint: [] Interval history: Interval history: Ms. Rosa is a 80 year old F with a history of HTN/COPD/anxiety/DJD who presents to the ER after sustaining a fall fracturing her left hip. Orthopedics recommended transfer patient from [facility] where she had initial blood work and imaging to [facility] for operative interventions. After brief evaluation at [facility] ER hospital service was consulted for admission Patient received analgesics and has been drowsy. Most of the history obtained from review of medical records and ER physician. Patient apparently while walking her dog ran into her son and fell sustaining injury to her left hip. Patient is scheduled for operative intervention around 4 PM, currently stable vitals/hemodynamics. She appears confused following administration of narcotics in the ER. She is currently on a watch bed. No fever, anxiety, diaphoresis, pain 12/16-patient doing well. No overnight events. No concerns per staff. Much more lucid alert. Off opioids. Postop day 1. Ongoing physical therapy. DC Flores's catheter if able to ambulate or bear weight. No additional concerns expressed by nursing staff. On Eliquis twice daily per orthopedics for DVT p rophylaxis. 12/17 No overnight event or new complaints. Leukocytosis improved. Patient is afebrile. Review of Systems: denies headache/fever/chills/nausea/vomiting/chest or abdominal pain/cough/dys pnea/diarrhea. Otherwise see above. Constitutional Vitals: Vital Signs Temp Pulse Resp BP Pulse Ox 98.3 F 70 16 156/72 95 12/17/20 04:00 12/17/20 04:00 12/17/20 04:00 12/17/20 04:00 12/17/20 04:00 Period Temp Pulse Resp BP Sys/[place] Pulse Ox Last 24 Hr 97.8 F-98.8 F 70-86 16-18 115-164/65-81 91-96 Intake and Output 12/16/20 12/17/20 12/17/20 21:59 05:59 13:59 Intake Total 400 400 Output Total 225 625 400 Balance 175 -225 -400 Weight 37.648 kg Intake & Output: Intake & Output 12/16/20 12/17/20 12/17/20 21:59 05:59 13:59 Intake Total 400 400 Output Total 225 625 400 Balance 175 -225 -400 Weight 37.648 kg Intake: Oral 400 400 Output: Void Amount 225 625 400 Other: Urine Appearance Clear Clear Clear Urine Color Light [place] Pale Bright Yellow Urine Odor Strong Normal Exam: General: Alert, Awake, No acute Distress Eyes/N/T: EOMI, Head/Neck: neck supple, CV: RRR, No murmurs, Pulm: Clear b/l, no wheezing/rhonchi/rales Abd: soft, nontender, +BS x4 Ext: no clubbing/cyanosis/edema Neuro: Alert, no focal deficits, moves all extremities, Skin: warm/dry OBJ DATA Labs CBC & Chem 7: 12/17/20 05:31 12/17/20 05:31 Labs: Abnormal Lab Results 12/16/20 12/16/20 05:27 05:27 WBC 16.0 H RBC 3.64 L Hgb 10.1 L Hct 31.5 L RDW 17.9 H Neut % (Auto) 81.6 H Lymph % (Auto) 6.5 L Lymph # (Auto) 1.04 L [place] # (Auto) 1.89 H Absolute Neutrophils 13.07 H Calcium 8.3 L Lactate Dehydrogenase 293 H Total Protein 5.8 L Meds: Medications Acetaminophen (Acetaminophen 500 Mg Tablet) 1,000 mg PO Q8H [facility]; Protocol Last Admin: 12/17/20 05:57 Dose: Not Given Documented by: Albuterol Sulfate (Albuterol Sulfate 2.5 Mg/3 Ml Nebulizer) 2.5 mg INH Q4HP PRN PRN Reason: Shortness Of Breath Albuterol Sulfate (Albuterol Sulfate 200 Puff Inhaler) 2 puff INH Q4HP PRN PRN Reason: Shortness Of Breath Apixaban (Apixaban 5 Mg Tablet) 2.5 mg PO BID [facility] Last Admin: 12/16/20 21:27 Dose: 2.5 mg Documented by: Ascorbic Acid (Ascorbic Acid 500 Mg Tablet) 500 mg PO QDAY [facility] Last Admin: 12/16/20 09:57 Dose: 500 mg Documented by: Bisacodyl (Bisacodyl 10 Mg Supp.Rect) 10 mg CO Q2-3DAYS PRN PRN Reason: Constipation Budesonide (Budesonide 0.5 Mg/2 Ml Ampul.Neb) 0.5 mg NEB Q12 [facility] Last Admin: 12/16/20 20:06 Dose: 0.5 mg Documented by: Duloxetine HCl (Duloxetine 20 Mg Capsule) 20 mg PO BID [facility] Last Admin: 12/16/20 21:42 Dose: 20 mg Documented by: Hydralazine HCl (Hydralazine 20 Mg/Ml Vial) 10 mg IV Q6HP PRN PRN Reason: Hypertension Last Admin: 12/16/20 11:56 Dose: 10 mg Documented by: Potassium Chloride 40 meq/ (Dextrose) 520 mls @ 130 mls/hr IV UD PRN PRN Reason: K+ = or < 3.5 Magnesium Sulfate (Magnesium Sulfate) 2 gm in 50 mls @ 50 mls/hr IV UD PRN PRN Reason: MG = or < 1.7 Sodium Chloride (Sodium Chloride 0.9%) 1,000 mls @ 50 mls/hr IV .Q20H [facility] Last Admin: 12/17/20 06:46 Dose: Not Given Documented by: Iron Carb/Multivit/Roof Fixer/Folic Acid (Multivit,Ther Iron,Ca,Fa & Min 1 Tablet) 1 tab PO DAILY [facility] Last Admin: 12/16/20 08:34 Dose: 1 tab Documented by: Lisinopril (Lisinopril 20 Mg Tablet) 20 mg PO DAILY [facility] Last Admin: 12/16/20 08:34 Dose: 20 mg Documented by: Lorazepam (Lorazepam 2 Mg/Ml Vial) 1 mg IV HS [facility] Last Admin: 12/16/20 21:27 Dose: 1 mg Documented by: Melatonin (Melatonin 3 Mg Tablet) 3 mg PO HSP PRN PRN Reason: Insomnia Methocarbamol (Methocarbamol 750 Mg Tablet) 500 mg PO Q6HP PRN PRN Reason: Muscle Spasm Metoprolol Tartrate (Metoprolol Tartrate 25 Mg Tablet) 25 mg PO BID [facility] Last Admin: 12/17/20 00:41 Dose: Not Given Documented by: Nicotine (Nicotine 21 Mg Patch) 21 mg TOPICAL DAILY [facility] Last Admin: 12/16/20 08:35 Dose: 21 mg Documented by: Ondansetron HCl (Ondansetron 4 Mg Odt Tablet) 4 mg SL Q4-6HP PRN; Protocol PRN Reason: Nausea And Vomiting Last Admin: 12/16/20 13:17 Dose: 4 mg Documented by: Ondansetron HCl (Ondansetron 4 Mg/2 Ml Vial) 4 mg IV Q4-6HP PRN; Protocol PRN Reason: Nausea And Vomiting Oxycodone HCl (Oxycodone Hcl 5 Mg Tablet) 0 mg PO Q4HP PRN; Protocol PRN Reason: Per Pain Protocol Last Admin: 12/17/20 04:54 Dose: 5 mg Documented by: Pantoprazole Sodium (Pantoprazole 40 Mg Tablet) 40 mg PO BIDAC [facility] Last Admin: 12/16/20 16:33 Dose: 40 mg Documented by: Polyethylene Glycol (Polyethylene Glycol 3350 17 Gm Packet) 17 gm PO DAILYP PRN PRN Reason: Constipation Last Admin: 12/16/20 09:02 Dose: 17 gm Documented by: Senna/Docusate Sodium (Sennosides/Docusate Sodium 1 Tab Tablet) 1 tab PO BID [facility] Last Admin: 12/16/20 21:38 Dose: Not Given Documented by: Sodium Chloride (0.9 % Sodium Chloride 10 Ml Syringe) 10 ml IV Q8 [facility] Last Admin: 12/17/20 05:57 Dose: Not Given Documented by: Thiamine HCl (Thiamine 100 Mg Tablet) 100 mg PO DAILY [facility] Last Admin: 12/16/20 08:34 Dose: 100 mg Documented by: A/P Narrative A/P Narrative: A: *Left hip fracture: s/p ORIF (12/15) *h/o COPD (no O2@home): continue bronchodilators *HTN: continue beta-gina/CHINA inhibitor post surgery with holding parameters *h/o GERD: continue sucralfate/PPI *Anxiety disorder: continue Cymbalta *Anemia, likely chronic and acute postop: *chronic leukocytosis?: f/u with hematology Plan -Pain management on as needed opioids/acetaminophen -Aggressive postop therapies -Discharge planning per case management -Nutrition support -f/u AAA u/s in 1-year -DVT prophylaxis as per orthopedics, eliquis Time Spent With Patient Time: Total time spent is greater than 50% in coordination of care (as documented) at patient's floor/unit and/or counseling patient: QUALITY VTE Deep Vein Thrombosis/Pulmonary Embolism Present on Admission: No
[2020-12-17] MEDS: MULTIVIT,THER IRON,CA,FA & MIN 1 TABLET PO SCH (07:53)
[2020-12-17] MEDS: SENNOSIDES/DOCUSATE SODIUM 1 TAB TABLET PO SCH ×2 (07:53→20:55)
[2020-12-17] MEDS: ASCORBIC ACID 500 MG TABLET PO SCH (07:53)
[2020-12-17] MEDS: LISINOPRIL 20 MG TABLET PO SCH (07:53)
[2020-12-17] MEDS: THIAMINE 100 MG TABLET PO SCH (07:53)
[2020-12-17] MEDS: NICOTINE 21 MG PATCH TOPICAL SCH (07:53)
[2020-12-17 08:30] LABS: Basophils # (Auto) 0.02 K/mcL (0.00-0.20); Basophils % (Auto) 0.2 % (0.0-2.0); Eosinophils # (Auto) 0.01 K/mcL (0.00-0.70); Eosinophils % (Auto) 0.1 % (0.0-7.0); Hemoglobin 9.9 g/dL (12.0-15.0); Lymphocytes # (Auto) 1.07 K/mcL (1.50-4.80); Lymphocytes % (Auto) 8.6 % (15.0-49.0); Mean Cell Volume 85.6 fL (80.0-100.0); Mean Corpuscular HGB Conc 31.9 g/dL (31.0-36.0); Mean Platelet Volume 9.2 fL (7.4-10.4); Monocytes % (Auto) 10.4 % (1.0-12.0); Neutrophils % (Auto) 80.7 % (38.0-78.0); Platelet Count 360 K/mcL (140-440); RBC 3.62 M/mcL (4.00-5.20); Red Cell Distribution Width 18.1 % (11.5-14.5); WBC 12.5 K/mcL (4.5-11.0)
[2020-12-17 08:43] LABS: ALT/SGPT 8 U/L (<40); AST/SGOT 27 U/L (<32); Albumin 3.3 gm/dL (3.2-5.2); Albumin/Globulin Ratio 1.6 (1.0-2.3); Alkaline Phosphatase 61 U/L (39-117); Bilirubin,Direct < 0.2 mg/dL (0-0.3); Bilirubin,Total 0.3 mg/dL (0.1-1.0); Blood Urea Nitrogen 18 mg/dL (8-23); Calcium 8.3 mg/dL (8.6-10.4); Carbon Dioxide 24 mmol/L (22-30); Chloride 100 mmol/L (96-108); Glomerular Filtration Rate 91; Glucose 84 mg/dL (70-105); Lactate Dehydrogenase 270 U/L (135-225); Phosphorous 2.1 mg/dL (2.5-4.5); Triglycerides 102 mg/dL (<150); Uric Acid 2.2 mg/dL (2.5-8.0)
[2020-12-17] MEDS: BUDESONIDE 0.5 MG/2 ML AMPUL.NEB NEB SCH ×2 (09:02→20:03)
[2020-12-17] MEDS: ALBUTEROL SULFATE 2.5 MG/3 ML NEBULIZER INH PRN ×2 (09:02→20:03)
[2020-12-17] MEDS ORDERED: PHOSPHORUS 250 MG TABLET PO ONE (09:23)
[2020-12-17] MEDS ORDERED: NEUTRA PHOS 1 PACKET PO ONE (09:23)
[2020-12-17] MEDS ORDERED: LORazepam 0.5 MG TABLET PO PRN (12:16)
--- NOTE | 2020-12-17 13:05 | Discharge Summary ---
Discharge Provider Provider Patient information: Note initiated : 12/17/20 at 1:03 pm Service Date, if different from initiated Date: [] Patient: Basia Rosa 80 y/o F admitted on 12/15/20 for Left Hip Pain. Chief Complaint: [] Date of admission: 12/15/20 10:41 Discharge date: 12/19/20 Primary care physician: Jan Ramirez Consults: 12/15/20 Consult to Physician [CONS] Stat Comment: Consulting Provider: Wilver Aleman Reason For Exam: Physician to Consult 12/15/20 09:22 Consult to Physician [CONS] Stat Comment: Consulting Provider: Gage Robles Reason For Exam: Physician to Consult Discharge Meds Discharge Medications Home Medications lorazepam 0.5 mg PO TID 02/07/15 [History Confirmed 12/15/20 Last Taken Unknown] metoprolol tartrate 25 mg PO BID 12/12/18 [History Confirmed 12/15/20 Last Taken Unknown] polyethylene glycol 3350 17 gm PO DAILY PRN 12/12/18 [History Confirmed 12/15/20 Last Taken Unknown] albuterol sulfate 2.5 mg INHALATION Q4HP PRN 08/07/20 [History Confirmed 12/15/20 Last Taken Unknown] albuterol sulfate [Ventolin HFA] 2 puff INHALATION Q4HP PRN 08/07/20 [History Confirmed 12/15/20 Last Taken Unknown] aspirin 81 mg PO DAILY 08/07/20 [History Confirmed 12/15/20 Last Taken Unknown] duloxetine [Cymbalta] 20 mg PO BID 08/07/20 [History Confirmed 12/15/20 Last Taken Unknown] lisinopril 20 mg PO QDAY 08/07/20 [History Confirmed 12/15/20 Last Taken Unknown] lorazepam 1 mg PO HS 08/07/20 [History Confirmed 12/15/20 Last Taken Unknown] meloxicam 15 mg PO QDAY 08/07/20 [History Confirmed 12/15/20 Last Taken Unknown] ondansetron HCl [Zofran] 8 mg PO Q8HP PRN 08/07/20 [History Confirmed 12/15/20 Last Taken Unknown] pantoprazole 20 mg PO BID 08/07/20 [History Confirmed 12/15/20 Last Taken Unknown] ascorbic acid (vitamin C) 500 mg PO QDAY 12/15/20 [History Confirmed 12/15/20 Last Taken Unknown] calcitonin (salmon) 1 spray INTRANASAL (ALT) QDAY 12/15/20 [History Confirmed 12/15/20 Last Taken Unknown] epinephrine 0.3 mg IM PRN PRN 12/15/20 [History Confirmed 12/15/20 Last Taken Unknown] lidocaine 1 patch TOPICAL DAILYP PRN 12/15/20 [History Confirmed 12/15/20 Last Taken Unknown] naloxone 4 mg INTRANASAL PRN PRN 12/15/20 [History Confirmed 12/15/20 Last Taken Unknown] nitroglycerin 0.4 mg SUBLINGUAL Q5M PRN 12/15/20 [History Confirmed 12/15/20 Last Taken Unknown] sennosides-docusate sodium 1 tab PO BID 12/15/20 [History Confirmed 12/15/20 Last Taken Unknown] ubidecarenone-omega 3-vit E 1 cap PO DAILY 12/15/20 [History Confirmed 12/15/20 Last Taken Unknown] acetaminophen [Tylenol Extra Strength] 1,000 mg PO Q8 #90 tab 12/16/20 [Rx Last Taken Unknown] apixaban [Eliquis] 2.5 mg PO BID #66 tab 12/16/20 [Rx Last Taken Unknown] docusate sodium [DOK] 100 mg PO BID #60 cap 12/16/20 [Rx Last Taken Unknown] methocarbamol 500 mg PO Q6HP PRN #25 tab 12/16/20 [Rx Last Taken Unknown] oxycodone 5 mg PO Q4HP PRN #60 tab 12/16/20 [Rx Last Taken Unknown] COURSE Hospital Course Hospital course: Interval history: Ms. Rosa is a 80 year old F with a history of HTN/COPD/anxiety/DJD who presents to the ER after sustaining a fall fracturing her left hip. Orthopedics recommended transfer patient from [facility] where she had initial blood work and imaging to [facility] for operative interventions. After brief evaluation at [facility] ER hospital service was consulted for admission Patient received analgesics and has been drowsy. Most of the history obtained from review of medical records and ER physician. Patient apparently while walking her dog ran into her son and fell sustaining injury to her left hip. Patient is scheduled for operative intervention around 4 PM, currently stable vitals/hemodynamics. She appears confused following administration of narcotics in the ER. She is currently on a watch bed. No fever, anxiety, diaphoresis, pain 12/16-patient doing well. No overnight events. No concerns per staff. Much more lucid alert. Off opioids. Postop day 1. Ongoing physical therapy. DC Flores's catheter if able to ambulate or bear weight. No additional concerns expressed by nursing staff. On Eliquis twice daily per orthopedics for DVT prophylaxis. 12/17 No overnight event or new complaints. Leukocytosis improved. Patient is afebrile. 12/18 No overnight event or new complaints. Awaiting placement to nursing facility Saturday. 12/19 No changes overnight no new complaints. Persistent mild leukocytosis. Chest imaging unremarkable. Urine dip unremarkable. Afebrile and no bandemia. *Mild persistent leukocytosis. Will order follow-up lab outpatient in 3 days, if still elevated patient should follow-up with hematology. A: *Left hip fracture: s/p ORIF (12/15) *h/o COPD (no O2@home): continue bronchodilators *HTN: continue beta-gina/CHINA inhibitor post surgery with holding parameters *h/o GERD: continue sucralfate/PPI *Anxiety disorder: continue Cymbalta *Anemia, likely chronic and acute postop: *chronic leukocytosis?: f/u with hematology Discharge diagnosis: left Hip fracture Secondary discharge diagnosis: COPD GERD hypertension anxiety chronic anemia Time Spent with Patient Time attestation: Total time spent providing and/or coordinating discharge services: Time spent: Greater than 30 minutes EXAM Constitutional Vitals: Temp Pulse Resp BP Pulse Ox 98.1 F 79 16 118/66 94 12/17/20 11:50 12/17/20 11:50 12/17/20 11:50 12/17/20 11:50 12/17/20 11:50 Discharge Data Data Completed and Pending Labs on day of discharge: Labs from last 24 hours 12/17/20 12/17/20 05:31 05:31 WBC 12.5 H RBC 3.62 L Hgb 9.9 L Hct 31.0 L MCV 85.6 MCH 27.3 MCHC 31.9 RDW 18.1 H Plt Count 360 MPV 9.2 Neut % (Auto) 80.7 H Lymph % (Auto) 8.6 L [place] % (Auto) 10.4 Eos % (Auto) 0.1 Baso % (Auto) 0.2 Lymph # (Auto) 1.07 L [place] # (Auto) 1.30 H Eos # (Auto) 0.01 Baso # (Auto) 0.02 Absolute Neutrophils 10.06 H Sodium 133 Potassium 3.5 Chloride 100 Carbon Dioxide 24 Anion Gap 9.0 BUN 18 Creatinine 0.5 L GFR Calculation 91 Glucose 84 Uric Acid 2.2 L Calcium 8.3 L Phosphorus 2.1 L Magnesium 2.1 Total Bilirubin 0.3 Direct Bilirubin < 0.2 GGT 17 AST 27 ALT 8 Alkaline Phosphatase 61 Lactate Dehydrogenase 270 H Total Protein 5.3 L Albumin 3.3 Globulin 2.0 L Albumin/Globulin Ratio 1.6 Triglycerides 102 Discharge Plan Patient/Caregiver Discharge Instructions Activity: increase activity as tolerated Diet: Regular Diet Activity Restrictions/Additional Instructions: Follow-up on cbc ordered for 3-days out Follow-up abdominal ultrasound in 1 year for incidental small abdominal aortic aneurysm ortho: Posterior hip precautions x 6 weeks. Ambulate with walker, weightbearing as leonard erated. Keep silver dressing clean and dry. No tub baths or soaking. If saturated, replace with clean, dry dressing. F/u with orthopedics in 2 weeks for postoperative wound check/staple removal. Prescriptions: New acetaminophen [Tylenol Extra Strength] 500 mg Tablet 1,000 mg PO Q8 Qty: 90 RF: 0 methocarbamol 750 mg Tablet 500 mg PO Q6HP PRN (Reason: Muscle Spasm) Qty: 25 RF: 0 docusate sodium [DOK] 100 mg Capsule 100 mg PO BID Qty: 60 RF: 0 oxycodone 5 mg Tablet 5 mg PO Q4HP PRN (Reason: Per Pain Protocol) Qty: 60 RF: 0 Eliquis 5 mg Tablet 2.5 mg PO BID Qty: 66 RF: 0 Continued lorazepam 1 MG tablet 0.5 mg PO TID RF: 0 metoprolol tartrate 25 MG tablet 25 mg PO BID RF: 0 polyethylene glycol 3350 17 GM packet 17 gm PO DAILY PRN (Reason: Constipation) RF: 0 albuterol sulfate 2.5 mg /3 mL (0.083 %) Solution For Nebulization 2.5 mg INHALATION Q4HP PRN (Reason: Shortness Of Breath) RF: 0 meloxicam 15 mg Tablet 15 mg PO QDAY RF: 0 lisinopril 20 mg Tablet 20 mg PO QDAY RF: 0 ondansetron HCl [Zofran] 4 mg Tablet 8 mg PO Q8HP PRN (Reason: Nausea) RF: 0 pantoprazole 20 mg Tablet,Delayed Release (Dr/Ec) 20 mg PO BID RF: 0 aspirin 81 mg Tablet,Chewable 81 mg PO DAILY RF: 0 lorazepam 1 mg Tablet 1 mg PO HS RF: 0 duloxetine [Cymbalta] 20 mg Capsule,Delayed Release(Dr/Ec) 20 mg PO BID RF: 0 albuterol sulfate [Ventolin HFA] 90 mcg/actuation Hfa Aerosol Inhaler 2 puff INHALATION Q4HP PRN (Reason: Shortness Of Breath) RF: 0 ascorbic acid (vitamin C) 500 mg Tablet 500 mg PO QDAY RF: 0 calcitonin (salmon) 200 unit/actuation [place],Non-Aerosol 1 spray INTRANASAL (ALT) QDAY RF: 0 ubidecarenone-omega 3-vit E 50-300-30 mg-mg-unit Capsule 1 cap PO DAILY RF: 0 epinephrine 0.3 mg/0.3 mL Auto-Injector 0.3 mg IM PRN PRN (Reason: Respiratory Distress) RF: 0 nitroglycerin 0.4 mg Tablet, Sublingual 0.4 mg SUBLINGUAL Q5M PRN (Reason: Chest Pain) RF: 0 naloxone 4 mg/actuation [place],Non-Aerosol 4 mg INTRANASAL PRN PRN (Reason: Respiratory Distress) RF: 0 sennosides-docusate sodium 8.6-50 mg Tablet 1 tab PO BID RF: 0 lidocaine 4 % Adhesive Patch,Medicated 1 patch TOPICAL DAILYP PRN (Reason: Pain) RF: 0 Discontinued hydrocodone-acetaminophen 1 TAB tablet 1 tab PO Q4H RF: 0 Other Ambulatory Orders: Complete Blood Count (Routine) Timeframe: 3 Days Facility: [facility] - Location: Laboratory Ordered By: Jamari Santana Physical Therapy at Discharge - [facility] (Routine) Location: None Selected Ordered By: Wilver Holley (ONCE) Location: None Selected Ordered By: Wilver Aleman Follow Up Plan Follow up with: Wilver Aleman MD [Physician] - (Contact the office to schedule an appointment) Jan Ramirez MD [Primary Care Provider] - Patient Disposition: Xfer SNF Prognosis: Fair Rehab Potential: Fair I certify that the patient requires SNF services: Yes Overall status at discharge: patient is progressing back to baseline Discharge Orders: Discharge Order (Routine); Ordered 12/19/20 Ordered By: Jamari Santana [facility] V[facility] Deep Vein Thrombosis/Pulmonary Embolism Present on Admission: No
[2020-12-17] MEDS: LORazepam 1 MG TABLET PO SCH (20:56)
[2020-12-17] MEDS: MELATONIN 3 MG TABLET PO PRN (22:07)
[2020-12-18] MEDS: 0.9 % SODIUM CHLORIDE 1,000 ML IV SCH (03:59)
[2020-12-18] MEDS: 0.9 % SODIUM CHLORIDE 10 ML SYRINGE IV SCH ×3 (04:00→21:15)
[2020-12-18] MEDS: ACETAMINOPHEN 500 MG TABLET PO SCH ×3 (04:11→21:29)
[2020-12-18] MEDS: oxyCODONE HCL 5 MG TABLET PO PRN ×3 (06:01→17:20)
[2020-12-18 07:02] LABS: Basophils # (Auto) 0.03 K/mcL (0.00-0.20); Basophils % (Auto) 0.2 % (0.0-2.0); Eosinophils # (Auto) 0.04 K/mcL (0.00-0.70); Eosinophils % (Auto) 0.3 % (0.0-7.0); Hematocrit 31.1 % (36.0-48.0); Hemoglobin 9.9 g/dL (12.0-15.0); Lymphocytes # (Auto) 0.93 K/mcL (1.50-4.80); Lymphocytes % (Auto) 7.4 % (15.0-49.0); Mean Cell Volume 85.9 fL (80.0-100.0); Mean Corpuscular HGB Conc 31.8 g/dL (31.0-36.0); Monocytes # (Auto) 1.18 K/mcL (0.10-0.90); Monocytes % (Auto) 9.4 % (1.0-12.0); Neutrophils % (Auto) 82.7 % (38.0-78.0); Platelet Count 383 K/mcL (140-440); RBC 3.62 M/mcL (4.00-5.20); Red Cell Distribution Width 18.3 % (11.5-14.5); WBC 12.5 K/mcL (4.5-11.0)
--- NOTE | 2020-12-18 07:43 | Internal Med Progress Note ---
SUBJECTIVE Subjective Patient information: Note initiated : 12/18/20 at 7:41 am Service Date, if different from initiated Date: [] Patient: Basia Rosa a 80 y/o F admitted on 12/15/20 for Left Hip Pain. Chief Complaint: [] Interval history: Interval history: Ms. Rosa is a 80 year old F with a history of HTN/COPD/anxiety/DJD who presents to the ER after sustaining a fall fracturing her left hip. Orthopedics recommended transfer patient from [facility] where she had initial blood work and imaging to [facility] for operative interventions. After brief evaluation at [facility] ER hospital service was consulted for admission Patient received analgesics and has been drowsy. Most of the history obtained from review of medical records and ER physician. Patient apparently while walking her dog ran into her son and fell sustaining injury to her left hip. Patient is scheduled for operative intervention around 4 PM, currently stable vitals/hemodynamics. She appears confused following administration of narcotics in the ER. She is currently on a watch bed. No fever, anxiety, diaphoresis, pain 12/16-patient doing well. No overnight events. No concerns per staff. Much more lucid alert. Off opioids. Postop day 1. Ongoing physical therapy. DC Flores's catheter if able to ambulate or bear weight. No additional concerns expressed by nursing staff. On Eliquis twice daily per orthopedics for DVT p rophylaxis. 12/17 No overnight event or new complaints. Leukocytosis improved. Patient is afebrile. 12/18 No overnight event or new complaints. Awaiting placement to nursing facility Saturday. Review of Systems: denies headache/fever/chills/nausea/vomiting/chest or abdominal pain/cough/dyspnea/diarrhea. Otherwise see above. Constitutional Vitals: Vital Signs Temp Pulse Resp BP Pulse Ox 98 F 68 16 166/73 98 12/18/20 04:00 12/18/20 04:00 12/18/20 04:00 12/18/20 04:00 12/18/20 04:00 Period Temp Pulse Resp BP Sys/[place] Pulse Ox Last 24 Hr 97.5 F-98.4 F 56-79 14-20 118-173/66-79 94-98 Intake and Output 12/17/20 12/18/20 12/18/20 21:59 05:59 13:59 Intake Total 200 Output Total 2 300 Balance -2 -100 Weight 38.102 kg Intake & Output: Intake & Output 12/17/20 12/18/20 12/18/20 21:59 05:59 13:59 Intake Total 200 Output Total 2 300 Balance -2 -100 Weight 38.102 kg Intake: Oral 200 Output: Void Amount 300 # of times incontinent of urine 2 Other: Meal Dinner Percent of Meal Consumed 25% Feeding Ability Independent Urine Appearance Clear Urine Color Bright Yellow # Voids 1 Exam: General: Alert, Awake, No acute Distress Eyes/N/T: EOMI, Head/Neck: neck supple, CV: RRR, No murmurs, Pulm: Clear b/l, no wheezing/rhonchi/rales Abd: soft, nontender, +BS x4 Ext: no clubbing/cyanosis/edema Neuro: Alert, no focal deficits, moves all extremities, Skin: warm/dry OBJ DATA Labs CBC & Chem 7: 12/18/20 05:51 12/17/20 05:31 Labs: Abnormal Lab Results 12/18/20 12/17/20 12/17/20 05:51 05:31 05:31 WBC 12.5 H 12.5 H RBC 3.62 L 3.62 L Hgb 9.9 L 9.9 L Hct 31.1 L 31.0 L RDW 18.3 H 18.1 H Neut % (Auto) 82.7 H 80.7 H Lymph % (Auto) 7.4 L 8.6 L Lymph # (Auto) 0.93 L 1.07 L [place] # (Auto) 1.18 H 1.30 H Absolute Neutrophils 10.35 H 10.06 H Creatinine 0.5 L Uric Acid 2.2 L Calcium 8.3 L Phosphorus 2.1 L Lactate Dehydrogenase 270 H Total Protein 5.3 L Globulin 2.0 L 12/16/20 12/16/20 05:27 05:27 WBC 16.0 H RBC 3.64 L Hgb 10.1 L Hct 31.5 L RDW 17.9 H Neut % (Auto) 81.6 H Lymph % (Auto) 6.5 L Lymph # (Auto) 1.04 L [place] # (Auto) 1.89 H Absolute Neutrophils 13.07 H Creatinine Uric Acid Calcium 8.3 L Phosphorus Lactate Dehydrogenase 293 H Total Protein 5.8 L Globulin Meds: Medications Acetaminophen (Acetaminophen 500 Mg Tablet) 1,000 mg PO Q8H [facility]; Protocol Last Admin: 12/18/20 04:11 Dose: 1,000 mg Documented by: Albuterol Sulfate (Albuterol Sulfate 2.5 Mg/3 Ml Nebulizer) 2.5 mg INH Q4HP PRN PRN Reason: Shortness Of Breath Last Admin: 12/17/20 20:03 Dose: 2.5 mg Documented by: Albuterol Sulfate (Albuterol Sulfate 200 Puff Inhaler) 2 puff INH Q4HP PRN PRN Reason: Shortness Of Breath Apixaban (Apixaban 5 Mg Tablet) 2.5 mg PO BID [facility] Last Admin: 12/17/20 20:55 Dose: 2.5 mg Documented by: Ascorbic Acid (Ascorbic Acid 500 Mg Tablet) 500 mg PO QDAY [facility] Last Admin: 12/17/20 07:53 Dose: 500 mg Documented by: Bisacodyl (Bisacodyl 10 Mg Supp.Rect) 10 mg [place] Q2-3DAYS PRN PRN Reason: Constipation Budesonide (Budesonide 0.5 Mg/2 Ml Ampul.Neb) 0.5 mg NEB Q12 [facility] Last Admin: 12/17/20 20:03 Dose: 0.5 mg Documented by: Duloxetine HCl (Duloxetine 20 Mg Capsule) 20 mg PO BID [facility] Last Admin: 12/17/20 20:54 Dose: 20 mg Documented by: Hydralazine HCl (Hydralazine 20 Mg/Ml Vial) 10 mg IV Q6HP PRN PRN Reason: Hypertension Last Admin: 12/16/20 11:56 Dose: 10 mg Documented by: Potassium Chloride 40 meq/ (Dextrose) 520 mls @ 130 mls/hr IV UD PRN PRN Reason: K+ = or < 3.5 Magnesium Sulfate (Magnesium Sulfate) 2 gm in 50 mls @ 50 mls/hr IV UD PRN PRN Reason: MG = or < 1.7 Sodium Chloride (Sodium Chloride 0.9%) 1,000 mls @ 50 mls/hr IV .Q20H [facility] Last Admin: 12/18/20 03:59 Dose: Not Given Documented by: Iron Carb/Multivit/Jacquard Card Cutter/Folic Acid (Multivit,Ther Iron,Ca,Fa & Min 1 Tablet) 1 tab PO DAILY [facility] Last Admin: 12/17/20 07:53 Dose: 1 tab Documented by: Lisinopril (Lisinopril 20 Mg Tablet) 20 mg PO DAILY [facility] Last Admin: 12/17/20 07:53 Dose: 20 mg Documented by: Lorazepam (Lorazepam 1 Mg Tablet) 1 mg PO HS [facility] Last Admin: 12/17/20 20:56 Dose: 1 mg Documented by: Lorazepam (Lorazepam 0.5 Mg Tablet) 0.5 mg PO TIDP PRN PRN Reason: ANXIETY/SEDATION Last Admin: 12/17/20 13:14 Dose: 0.5 mg Documented by: Melatonin (Melatonin 3 Mg Tablet) 3 mg PO HSP PRN PRN Reason: Insomnia Last Admin: 12/17/20 22:07 Dose: 3 mg Documented by: Methocarbamol (Methocarbamol 750 Mg Tablet) 500 mg PO Q6HP PRN PRN Reason: Muscle Spasm Metoprolol Tartrate (Metoprolol Tartrate 25 Mg Tablet) 25 mg PO BID [facility] Last Admin: 12/17/20 20:54 Dose: 25 mg Documented by: Nicotine (Nicotine 21 Mg Patch) 21 mg TOPICAL DAILY [facility] Last Admin: 12/17/20 07:53 Dose: 21 mg Documented by: Ondansetron HCl (Ondansetron 4 Mg Odt Tablet) 4 mg SL Q4-6HP PRN; Protocol PRN Reason: Nausea And Vomiting Last Admin: 12/16/20 13:17 Dose: 4 mg Documented by: Ondansetron HCl (Ondansetron 4 Mg/2 Ml Vial) 4 mg IV Q4-6HP PRN; Protocol PRN Reason: Nausea And Vomiting Oxycodone HCl (Oxycodone Hcl 5 Mg Tablet) 0 mg PO Q4HP PRN; Protocol PRN Reason: Per Pain Protocol Last Admin: 12/18/20 06:01 Dose: 5 mg Documented by: Pantoprazole Sodium (Pantoprazole 40 Mg Tablet) 40 mg PO BIDAC [facility] Last Admin: 12/17/20 16:50 Dose: 40 mg Documented by: Polyethylene Glycol (Polyethylene Glycol 3350 17 Gm Packet) 17 gm PO DAILYP PRN PRN Reason: Constipation Last Admin: 12/16/20 09:02 Dose: 17 gm Documented by: Senna/Docusate Sodium (Sennosides/Docusate Sodium 1 Tab Tablet) 1 tab PO BID [facility] Last Admin: 12/17/20 20:55 Dose: 1 tab Documented by: Sodium Chloride (0.9 % Sodium Chloride 10 Ml Syringe) 10 ml IV Q8 [facility] Last Admin: 12/18/20 04:00 Dose: 10 ml Documented by: Thiamine HCl (Thiamine 100 Mg Tablet) 100 mg PO DAILY [facility] Last Admin: 12/17/20 07:53 Dose: 100 mg Documented by: A/P Narrative A/P Narrative: A: *Left hip fracture: s/p ORIF (12/15) *h/o COPD (no O2@home): continue bronchodilators *HTN: continue beta-gina/[place] inhibitor post surgery with holding parameters *h/o GERD: continue sucralfate/PPI *Anxiety disorder: continue Cymbalta *Anemia, likely chronic and acute postop: *Tobacco abuse: *chronic leukocytosis: f/u with hematology Plan -Pain management on as needed opioids/acetaminophen -Aggressive postop therapies -Discharge planning per case management -Nutrition support -f/u [facility] u/s in 1-year -Smoking cessation counseling -f/u with hematology for chronic leukocytosis -DVT prophylaxis as per orthopedicrashid hunter DNR Time Spent With Patient Time: Total time spent is greater than 50% in coordination of care (as documented) at patient's floor/unit and/or counseling patient: QUALITY VTE Deep Vein Thrombosis/Pulmonary Embolism Present on Admission: No
[2020-12-18] MEDS: MULTIVIT,THER IRON,CA,FA & MIN 1 TABLET PO SCH (08:05)
[2020-12-18] MEDS: ASCORBIC ACID 500 MG TABLET PO SCH (08:05)
[2020-12-18] MEDS: THIAMINE 100 MG TABLET PO SCH (08:05)
[2020-12-18] MEDS: METOPROLOL TARTRATE 25 MG TABLET PO SCH ×2 (08:05→21:15)
[2020-12-18] MEDS: SENNOSIDES/DOCUSATE SODIUM 1 TAB TABLET PO SCH ×2 (08:05→21:15)
[2020-12-18] MEDS: PANTOPRAZOLE 40 MG TABLET PO SCH ×2 (08:05→17:20)
[2020-12-18] MEDS: LISINOPRIL 20 MG TABLET PO SCH (08:06)
[2020-12-18] MEDS: DULoxetine 20 MG CAPSULE PO SCH ×2 (08:06→21:39)
[2020-12-18] MEDS: NICOTINE 21 MG PATCH TOPICAL SCH (08:06)
[2020-12-18] MEDS: APIXABAN 5 MG TABLET PO SCH ×2 (08:06→21:14)
[2020-12-18] MEDS: BUDESONIDE 0.5 MG/2 ML AMPUL.NEB NEB SCH ×2 (09:31→20:13)
[2020-12-18] MEDS: LORazepam 1 MG TABLET PO SCH (21:14)
[2020-12-18] MEDS: MELATONIN 3 MG TABLET PO PRN (21:30)
[2020-12-19] MEDS: 0.9 % SODIUM CHLORIDE 1,000 ML IV SCH (01:44)
[2020-12-19] MEDS: 0.9 % SODIUM CHLORIDE 10 ML SYRINGE IV SCH (05:24)
[2020-12-19] MEDS: ACETAMINOPHEN 500 MG TABLET PO SCH (05:24)
[2020-12-19] MEDS: oxyCODONE HCL 5 MG TABLET PO PRN ×2 (05:50→12:18)
[2020-12-19 06:50] LABS: Basophils # (Auto) 0.04 K/mcL (0.00-0.20); Basophils % (Auto) 0.3 % (0.0-2.0); Eosinophils % (Auto) 0.7 % (0.0-7.0); Hematocrit 33.2 % (36.0-48.0); Hemoglobin 10.6 g/dL (12.0-15.0); Lymphocytes # (Auto) 1.49 K/mcL (1.50-4.80); Lymphocytes % (Auto) 10.9 % (15.0-49.0); Mean Cell Volume 86.9 fL (80.0-100.0); Mean Corpuscular HGB Conc 31.9 g/dL (31.0-36.0); Mean Platelet Volume 9.2 fL (7.4-10.4); Monocytes # (Auto) 1.22 K/mcL (0.10-0.90); Neutrophils % (Auto) 79.1 % (38.0-78.0); Platelet Count 433 K/mcL (140-440); RBC 3.82 M/mcL (4.00-5.20); Red Cell Distribution Width 18.4 % (11.5-14.5); WBC 13.6 K/mcL (4.5-11.0)
--- NOTE | 2020-12-19 06:54 | Orthopedic Progress Note ---
SUBJECTIVE Subjective Patient information: Note initiated : 12/19/20 at 6:49 am Service Date, if different from initiated Date: [] Patient: Basia Rosa 80 y/o F admitted on 12/15/20 for Left Hip Pain. Chief Complaint: POD 4 s/p left cemented thanh hip arthroplasty. Denies new complaints--admits to pain in the left hip but states it is managed. Denies CP, SOB, fevers/chills. Constitutional Vitals: Vital Signs Temp Pulse Resp BP Pulse Ox 98 F 67 14 163/79 96 12/19/20 03:44 12/19/20 03:44 12/19/20 03:44 12/19/20 03:44 12/19/20 03:44 Period Temp Pulse Resp BP Sys/[place] Pulse Ox Last 24 Hr 97.2 F-98.7 F 60-76 12-20 122-163/67-79 96-98 Intake and Output 12/18/20 12/19/20 12/19/20 21:59 05:59 13:59 Intake Total 480 240 480 Output Total 150 450 175 Balance 330 -210 305 Weight 83 lb 2 oz Intake & Output: Intake & Output 12/18/20 12/19/20 12/19/20 21:59 05:59 13:59 Intake Total 480 240 480 Output Total 150 450 175 Balance 330 -210 305 Weight 83 lb 2 oz Intake: Oral 480 240 480 Output: Void Amount 150 450 175 Other: Urine Appearance Clear Urine Color Dark Yellow Dark Yellow Bright Yellow Urine Odor Normal Normal Extremities Exam Extremities exam: Present Foot pink and warm and neurovascular intact; Absent calf tenderness and Altagracia's sign Additional comments: silver dressing in place over left hip. Dressing is clean, dry and intact. Full ROM bilateral lower extremities. OBJ DATA Labs CBC & Chem 7: 12/19/20 05:50 12/17/20 05:31 Labs: Abnormal Lab Results 12/18/20 12/17/20 12/17/20 05:51 05:31 05:31 WBC 12.5 H 12.5 H RBC 3.62 L 3.62 L Hgb 9.9 L 9.9 L Hct 31.1 L 31.0 L RDW 18.3 H 18.1 H Neut % (Auto) 82.7 H 80.7 H Lymph % (Auto) 7.4 L 8.6 L Lymph # (Auto) 0.93 L 1.07 L [place] # (Auto) 1.18 H 1.30 H Absolute Neutrophils 10.35 H 10.06 H Creatinine 0.5 L Uric Acid 2.2 L Calcium 8.3 L Phosphorus 2.1 L Lactate Dehydrogenase 270 H Total Protein 5.3 L Globulin 2.0 L 12/16/20 05:27 WBC RBC Hgb Hct RDW Neut % (Auto) Lymph % (Auto) Lymph # (Auto) [place] # (Auto) Absolute Neutrophils Creatinine Uric Acid Calcium 8.3 L Phosphorus Lactate Dehydrogenase 293 H Total Protein 5.8 L Globulin Meds: Medications Acetaminophen (Acetaminophen 500 Mg Tablet) 1,000 mg PO Q8H [facility]; Protocol Last Admin: 12/19/20 05:24 Dose: 1,000 mg Documented by: Albuterol Sulfate (Albuterol Sulfate 2.5 Mg/3 Ml Nebulizer) 2.5 mg INH Q4HP PRN PRN Reason: Shortness Of Breath Last Admin: 12/17/20 20:03 Dose: 2.5 mg Documented by: Albuterol Sulfate (Albuterol Sulfate 200 Puff Inhaler) 2 puff INH Q4HP PRN PRN Reason: Shortness Of Breath Apixaban (Apixaban 5 Mg Tablet) 2.5 mg PO BID [facility] Last Admin: 12/18/20 21:14 Dose: 2.5 mg Documented by: Ascorbic Acid (Ascorbic Acid 500 Mg Tablet) 500 mg PO QDAY [facility] Last Admin: 12/18/20 08:05 Dose: 500 mg Documented by: Bisacodyl (Bisacodyl 10 Mg Supp.Rect) 10 mg [place] Q2-3DAYS PRN PRN Reason: Constipation Budesonide (Budesonide 0.5 Mg/2 Ml Ampul.Neb) 0.5 mg NEB Q12 [facility] Last Admin: 12/18/20 20:13 Dose: 0.5 mg Documented by: Duloxetine HCl (Duloxetine 20 Mg Capsule) 20 mg PO BID [facility] Last Admin: 12/18/20 21:39 Dose: 20 mg Documented by: Hydralazine HCl (Hydralazine 20 Mg/Ml Vial) 10 mg IV Q6HP PRN PRN Reason: Hypertension Last Admin: 12/16/20 11:56 Dose: 10 mg Documented by: Potassium Chloride 40 meq/ (Dextrose) 520 mls @ 130 mls/hr IV UD PRN PRN Reason: K+ = or < 3.5 Magnesium Sulfate (Magnesium Sulfate) 2 gm in 50 mls @ 50 mls/hr IV UD PRN PRN Reason: MG = or < 1.7 Iron Carb/Multivit/[place]/Folic Acid (Multivit,Ther Iron,Ca,Fa & Min 1 Tablet) 1 tab PO DAILY [facility] Last Admin: 12/18/20 08:05 Dose: 1 tab Documented by: Lisinopril (Lisinopril 20 Mg Tablet) 20 mg PO DAILY [facility] Last Admin: 12/18/20 08:06 Dose: 20 mg Documented by: Lorazepam (Lorazepam 1 Mg Tablet) 1 mg PO HS [facility] Last Admin: 12/18/20 21:14 Dose: 1 mg Documented by: Lorazepam (Lorazepam 0.5 Mg Tablet) 0.5 mg PO TIDP PRN PRN Reason: ANXIETY/SEDATION Last Admin: 12/17/20 13:14 Dose: 0.5 mg Documented by: Melatonin (Melatonin 3 Mg Tablet) 3 mg PO HSP PRN PRN Reason: Insomnia Last Admin: 12/18/20 21:30 Dose: 3 mg Documented by: Methocarbamol (Methocarbamol 750 Mg Tablet) 500 mg PO Q6HP PRN PRN Reason: Muscle Spasm Metoprolol Tartrate (Metoprolol Tartrate 25 Mg Tablet) 25 mg PO BID [facility] Last Admin: 12/18/20 21:15 Dose: 25 mg Documented by: Nicotine (Nicotine 21 Mg Patch) 21 mg TOPICAL DAILY [facility] Last Admin: 12/18/20 08:06 Dose: 21 mg Documented by: Ondansetron HCl (Ondansetron 4 Mg Odt Tablet) 4 mg SL Q4-6HP PRN; Protocol PRN Reason: Nausea And Vomiting Last Admin: 12/16/20 13:17 Dose: 4 mg Documented by: Ondansetron HCl (Ondansetron 4 Mg/2 Ml Vial) 4 mg IV Q4-6HP PRN; Protocol PRN Reason: Nausea And Vomiting Oxycodone HCl (Oxycodone Hcl 5 Mg Tablet) 0 mg PO Q4HP PRN; Protocol PRN Reason: Per Pain Protocol Last Admin: 12/19/20 05:50 Dose: 10 mg Documented by: Pantoprazole Sodium (Pantoprazole 40 Mg Tablet) [facility] Last Admin: 12/18/20 17:20 Dose: 40 mg Documented by: Polyethylene Glycol (Polyethylene Glycol 3350 17 Gm Packet) 17 gm PO DAILYP PRN PRN Reason: Constipation Last Admin: 12/16/20 09:02 Dose: 17 gm Documented by: Senna/Docusate Sodium (Sennosides/Docusate Sodium 1 Tab Tablet) 1 tab PO BID [facility] Last Admin: 12/18/20 21:15 Dose: Not Given Documented by: Sodium Chloride (0.9 % Sodium Chloride 10 Ml Syringe) 10 ml IV Q8 [facility] Last Admin: 12/19/20 05:24 Dose: 10 ml Documented by: Thiamine HCl (Thiamine 100 Mg Tablet) 100 mg PO DAILY [facility] Last Admin: 12/18/20 08:05 Dose: 100 mg Documented by: A/P Assessment and plan (1) Hip fracture: Status: Acute Comment: S/p s/p left cemented thanh hip arthroplasty performed on 12/15/20 --keep silver dressing in place until followup with orthopedics. Do not get wet, keep clean and dry. If saturated, replace with new dry dressing. --f/u 2 weeks orthopedics for wound check and staple removal -- wbat--continue with posterior hip precautions x6 weeks -- continue diet -- continue pain medications -- Prophy: IS, foot pumps, eliquis, ambulation -- Dispo: rehab Time Spent With Patient Time: Total time spent is greater than 50% in coordination of care (as documented) at patient's floor/unit and/or counseling patient:
[2020-12-19] MEDS: BUDESONIDE 0.5 MG/2 ML AMPUL.NEB NEB SCH (08:39)
[2020-12-19] MEDS: ALBUTEROL SULFATE 2.5 MG/3 ML NEBULIZER INH PRN (08:40)
[2020-12-19] MEDS: MULTIVIT,THER IRON,CA,FA & MIN 1 TABLET PO SCH (09:01)
[2020-12-19] MEDS: METOPROLOL TARTRATE 25 MG TABLET PO SCH (09:01)
[2020-12-19] MEDS: APIXABAN 5 MG TABLET PO SCH (09:01)
[2020-12-19] MEDS: DULoxetine 20 MG CAPSULE PO SCH (09:02)
[2020-12-19] MEDS: SENNOSIDES/DOCUSATE SODIUM 1 TAB TABLET PO SCH (09:02)
[2020-12-19] MEDS: PANTOPRAZOLE 40 MG TABLET PO SCH (09:02)
[2020-12-19] MEDS: LISINOPRIL 20 MG TABLET PO SCH (09:02)
[2020-12-19] MEDS: THIAMINE 100 MG TABLET PO SCH (09:02)
[2020-12-19] MEDS: NICOTINE 21 MG PATCH TOPICAL SCH (09:02)
[2020-12-19] MEDS: ASCORBIC ACID 500 MG TABLET PO SCH (09:02)
== END 2020-12-19 12:35 | DRG 522 ==
LOC: ED 07:10 → ICU 10:41 → MEDSUR 17:00
PROVIDERS: ADMIT Internal Medicine; ATTEND Internal Medicine